=== PATIENT | female | born 1950 | race Caucasian/White ===

== ENCOUNTER → 2020-03-22 | Outpatient (CLI) | payer MEDICARE | LOC: ZCOL.LAB 19:07 | DX: S00.431A Contusion of right ear, initial encounter (principal) ==

== ENCOUNTER → 2020-03-22 | Outpatient (CLI) | payer MEDICARE | LOC: ZCOL.LAB 14:00 | DX: S00.431A Contusion of right ear, initial encounter (principal) ==

== ENCOUNTER 2020-07-08 09:30 | Outpatient (CLI) | payer MEDICARE ==
[~2020-07-08] VITALS: Ht 154.9 cm; Wt 79.0 kg
[2020-07-08] VITALS (9 sets, daily range): BP systolic 102–173; BP diastolic 63–86; PULSE 90–110
[2020-07-08] MEDS ORDERED: HUMALOG100 U/ML SQ (09:53)
[2020-07-08] MEDS ORDERED: TOPAMAX50 MG PO (09:54)
[2020-07-08] MEDS ORDERED: MASON NATURAL2000 IU PO (09:55)
[2020-07-08] MEDS ORDERED: HUMULIN 70/3100 U/M1 SQ (09:55)
[2020-07-08] MEDS ORDERED: MIRAPEX0.25 MG PO (09:56)
[2020-07-08] MEDS ORDERED: KEPPRA750 MG PO (09:57)
[2020-07-08] MEDS ORDERED: CRESTOR 10MG10 MG PO (09:57)
[2020-07-08] MEDS ORDERED: PERCOCET 325 MG1 TAB PO (09:58)
[2020-07-08] MEDS ORDERED: MOBIC15 MG PO (09:59)
[2020-07-08] MEDS ORDERED: FARXIGA5 PO (09:59)
[2020-07-08] MEDS ORDERED: CYMBALTA 60MG60 MG PO (09:59)
[2020-07-08 11:17] LABS: GLUCOSE,CSF 107 mg/dL (40-70); TOTAL PROTEIN,CSF 73 mg/dL (15-45)
--- NOTE | 2020-07-08 11:52 | NUR ---
Pt's Alex contacted, he states he is 45 mins out, and will come to the hospital to picked edge sewing machine operator . Pt continues to rest comfortably, denies needs. Call light in reach.
--- NOTE | 2020-07-08 12:45 | NUR ---
Pt assisted out by wheelchair to 's car. Nausea has resolved. Pt expresses understanding of DC instructions. Bandaid over LP site remains clean, dry and intact.
[2020-07-08 13:21] LABS: CSF APPEARANCE CLEAR; CSF COLOR COLORLESS; CSF RBC 69 /mm3 (0-0)
[2020-07-08 13:22] LABS: CSF MONONUCLEAR 98 % (70-100); CSF POLYMORPHONUCLEAR 2 % (0-6)
== END 2020-07-08 12:47 | disposition home or self-care (01) ==
LOC: COL.RAD 09:30
PROVIDERS: Psychiatry & Neurology Neurology
DX: G37.9 Demyelinating disease of central nervous system, unspecified (principal)

== ENCOUNTER 2020-08-12 10:08 | Outpatient (RCR) | payer MEDICARE ==
[~2020-08-12 10:08] MED LIST: CRESTOR 10MG10 MG PO; CYMBALTA 60MG60 MG PO; FARXIGA5 PO; HUMALOG100 U/ML SQ; HUMULIN 70/3100 U/M1 SQ; KEPPRA1000 MG PO; MASON NATURAL2000 IU PO; MIRAPEX 1MG PO; MOBIC15 MG PO; PERCOCET 325 MG1 TAB PO; TOPAMAX50 MG PO
[2020-10-30] MEDS ORDERED: PRISTIQ25 MG PO (09:00)
[2020-10-30] MEDS ORDERED: AMITRIPTYLINE H25 M1 PO (09:00)
[2020-10-30] MEDS ORDERED: ZYRTEC 10MG10 MG PO (09:01)
[2020-10-30] MEDS ORDERED: SINGULAIR 110 MG/TAB PO (09:01)
[2021-03-04] MEDS ORDERED: PRIL40 PO (10:50)
[2021-03-04] MEDS ORDERED: FIORICET 325 MG1 TA1 PO (10:53)
== END 2020-11-10 | disposition still patient (30) ==
LOC: WSST
DX: I69.391 Dysphagia following cerebral infarction (principal); R13.12 Dysphagia, oropharyngeal phase; R05 Cough; G35 Multiple sclerosis; M79.7 Fibromyalgia; E11.9 Type 2 diabetes mellitus without complications

== ENCOUNTER → 2020-08-28 | Outpatient (CLI) | payer MEDICARE ==
[~2020-08-28] MED LIST changes: +AMITRIPTYLINE H25 M1 PO; +FIORICET 325 MG1 TA1 PO; +PRIL40 PO; +PRISTIQ25 MG PO; +SINGULAIR 110 MG/TAB PO; +ZYRTEC 10MG10 MG PO
== END ==
LOC: COL.RAD
DX: R05 Cough (principal)

== ENCOUNTER 2020-11-04 09:18 | Outpatient (CLI) | payer MEDICARE ==
[2020-11-04] VITALS (9 sets, daily range): BP systolic 131–148; BP diastolic 73–94; PULSE 78–98
[~2020-11-04] VITALS: Ht 154.9 cm; Wt 84.0 kg
[~2020-11-04 09:18] MED LIST changes: -FIORICET 325 MG1 TA1 PO; -PRIL40 PO
[2021-03-04] MEDS ORDERED: PRIL40 PO (10:50)
[2021-03-04] MEDS ORDERED: FIORICET 325 MG1 TA1 PO (10:53)
== END 2020-11-04 21:47 | disposition home or self-care (01) ==
LOC: COL.RAD 09:18
DX: M48.02 Spinal stenosis, cervical region (principal)
CPT/HCPCS: Q9967

== ENCOUNTER → 2021-01-01 | Outpatient (CLI) | payer MEDICARE ==
[~2021-01-01] MED LIST changes: +FIORICET 325 MG1 TA1 PO; +PRIL40 PO
== END ==
LOC: COL.RAD 10:08
DX: M51.26 Other intervertebral disc displacement, lumbar region (principal); M47.817 Spondylosis without myelopathy or radiculopathy, lumbosacral region; M47.816 Spondylosis without myelopathy or radiculopathy, lumbar region
CPT/HCPCS: A9585

== ENCOUNTER → 2021-02-26 | Outpatient (CLI) | payer MEDICARE | LOC: COL.RAD 02-25 13:00 | DX: I65.23 Occlusion and stenosis of bilateral carotid arteries (principal) | CPT/HCPCS: Q9967 ==

== ENCOUNTER → 2021-03-04 | Day surgery (SDC) | payer MEDICARE ==
[~2021-03-04] VITALS: Ht 154.9 cm; Wt 86.0 kg
[2021-03-04 10:38] VITALS: BP 134/70; PULSE 91; TEMP 97.4
[2021-03-04 13:55] VITALS: BP 94/51; PULSE 80; TEMP 97.9
[2021-03-04 14:10] VITALS: BP 93/53; PULSE 76
[2021-03-04 14:25] VITALS: BP 116/54; PULSE 77
--- NOTE | 2021-03-04 15:35 | NUR ---
1355: Patient arrived back into [facility]. Soft blood pressure noted, patient drowsy and awakens to voice. at bedside. Hand off from ORACLE BRM DEVELOPER and MAT CLEANING MACHINE OPERATOR. 1410: Patient awake and alert. Soft bps noted. Patient requesting orange jello and water. Tolerated well. 1425: Patient vitally stable. Tolerated second jello well. No nausea/vomiting. Denies pain at this time. 1440: Patient vitally stable. Patient to restroom. 1310: Patient able to void, got dressed. IV pulled. Discharge instructions recieved by patient and . Questions answered. Patient got dressed. 1320: Call light on. Patient states she is ready to go. Escorted patient and to patient entrances and assisted patient into their vehicle.
== END ==
LOC: SDCO 10:02
DX: G44.89 Other headache syndrome (principal); E11.65 Type 2 diabetes mellitus with hyperglycemia; E78.5 Hyperlipidemia, unspecified; G35 Multiple sclerosis; F32.9 Major depressive disorder, single episode, unspecified; G25.81 Restless legs syndrome; I25.10 Atherosclerotic heart disease of native coronary artery without angina pectoris; M17.11 Unilateral primary osteoarthritis, right knee; R56.9 Unspecified convulsions; Z79.1 Long term (current) use of non-steroidal anti-inflammatories (NSAID); Z79.4 Long term (current) use of insulin; Z95.0 Presence of cardiac pacemaker; Z79.899 Other long term (current) drug therapy
CPT/HCPCS: A4648; J7120

== ENCOUNTER → 2021-04-02 | Outpatient (CLI) | payer MEDICARE | LOC: MHCPAIN 09:16 | DX: M47.817 Spondylosis without myelopathy or radiculopathy, lumbosacral region (principal); M53.3 Sacrococcygeal disorders, not elsewhere classified; M54.16 Radiculopathy, lumbar region | CPT/HCPCS: G0463 ==

== ENCOUNTER → 2021-04-07 | Outpatient (CLI) | payer MEDICARE | LOC: MHCPAIN 12:16 | DX: M47.817 Spondylosis without myelopathy or radiculopathy, lumbosacral region (principal); M54.50 Low back pain, unspecified; M53.3 Sacrococcygeal disorders, not elsewhere classified ==

== ENCOUNTER → 2021-04-14 | Outpatient (CLI) | payer MEDICARE | LOC: MHCPAIN 10:48 | DX: M47.817 Spondylosis without myelopathy or radiculopathy, lumbosacral region (principal); M54.50 Low back pain, unspecified; M53.3 Sacrococcygeal disorders, not elsewhere classified; M96.1 Postlaminectomy syndrome, not elsewhere classified | CPT/HCPCS: G0463 ==

== ENCOUNTER → 2021-04-21 | Outpatient (CLI) | payer MEDICARE | LOC: MHCPAIN 10:07 | DX: M47.817 Spondylosis without myelopathy or radiculopathy, lumbosacral region (principal); M53.3 Sacrococcygeal disorders, not elsewhere classified; M54.50 Low back pain, unspecified ==

== ENCOUNTER → 2021-05-05 | Outpatient (CLI) | payer MEDICARE | LOC: MHCPAIN 15:28 | DX: M47.817 Spondylosis without myelopathy or radiculopathy, lumbosacral region (principal); M53.3 Sacrococcygeal disorders, not elsewhere classified; M54.50 Low back pain, unspecified | CPT/HCPCS: G0463 ==

== ENCOUNTER → 2021-05-27 | Outpatient (CLI) | payer MEDICARE | LOC: MHCPAIN 13:52 | CPT/HCPCS: J2250; J3010 ==

== ENCOUNTER → 2021-06-03 | Outpatient (CLI) | payer MEDICARE | LOC: MHCPAIN 13:32 | DX: M47.817 Spondylosis without myelopathy or radiculopathy, lumbosacral region (principal); M54.50 Low back pain, unspecified; M53.3 Sacrococcygeal disorders, not elsewhere classified | CPT/HCPCS: J2250; J3010 ==

== ENCOUNTER 2021-09-09 11:20 | Emergency (ER) | payer MEDICARE ==
[~2021-09-09] VITALS: Ht 152.4 cm; Wt 86.8 kg
[2021-09-09 11:38] VITALS: TEMP 97.3
[2021-09-09 12:18] LABS: BASO # 0.1 K/mm3 (0.0-0.2); BASO % 0.7 % (0.0-2.0); EOS # 0.3 K/mm3 (0.0-0.7); EOS % 3.1 % (0.0-4.0); GRAN # 5.8 K/mm3 (1.4-6.5); GRAN % 68.9 % (42.2-75.2); HEMATOCRIT 37.3 % (37.0-47.0); HEMOGLOBIN 11.7 g/dl (12.5-16.0); LYMPH # 1.6 K/mm3 (1.2-3.4); LYMPH % 18.4 % (20.0-51.0); MEAN CELL VOLUME 89 fl (80.0-100.0); MEAN CORPUSCULAR HEMOGLOBIN 28 pg (27-31); MEAN CORPUSCULAR HGB CONC 31 g/dl (33.0-37.0); MEAN PLATELET VOLUME 10.1 fl (7.4-10.4); MONO # 0.7 K/mm3 (0.1-0.6); MONO % 8.5 % (1.7-9.3); PLATELET COUNT 156 K/mm3 (130-400); RED BLOOD COUNT 4.17 M/mm3 (4.10-5.30); REDCELL DISTRIBUTION WIDTH-CV 12.9 % (11.5-14.5)
[2021-09-09 12:28] LABS: ALANINE AMINOTRANSFERASE 28 U/L (0-55); ALBUMIN 3.6 gm/dL (3.4-4.8); ALKALINE PHOSPHATASE 136 U/L (40-150); ANION GAP 10 mmol/L (7-16); AST,SGOT 27 U/L (5-34); BILIRUBIN,TOTAL 0.3 mg/dL (0.2-1.2); BLOOD UREA NITROGEN 21 mg/dL (10-20); CARBON DIOXIDE 28 mmol/L (23-31); CHLORIDE 104 mmol/L (98-107); CREATININE, serum 1.16 mg/dL (0.57-1.11); GLUCOSE 129 mg/dL (70-99); POTASSIUM 4.7 mmol/L (3.5-4.5); SODIUM 142 mmol/L (136-145); TOTAL PROTEIN 7.2 gm/dL (6.2-8.1)
[2021-09-09 12:48] LABS: TROPONIN-I < 0.010 ng/mL (0.00-0.033)
[2021-09-09 13:30] LABS: COLLECTION METHOD CLEAN CATCH
[2021-09-09 13:44] LABS: MUCOUS Present (NOT PRESENT); PH 5 (5-8); URINE APPEARANCE Hazy (CLEAR/HAZY); URINE BACTERIA Rare /hpf (NONE SEEN); URINE BILIRUBIN Negative (NEGATIVE); URINE BLOOD Negative (NEGATIVE); URINE COLOR Yellow (YELLOW); URINE GLUCOSE 3+ (NEGATIVE); URINE KETONE Negative (NEGATIVE); URINE LEUKOCYTE ESTERASE 1+ (NEGATIVE); URINE NITRATE Negative (NEGATIVE); URINE PROTEIN(semi-quant) 2+ (NEGATIVE); URINE RBC 0-2 /hpf (0-2); URINE UROBILINOGEN Negative (NEGATIVE)
[2021-09-09] MEDS ORDERED: BACTRIM DS 8001 TAB PO (14:01)
[2021-09-09 14:07] VITALS: BP 139/86; PULSE 84
== END 2021-09-09 14:29 | disposition home or self-care (01) ==
LOC: COL.ER 11:20
PROVIDERS: Emergency Medicine
DX: N39.0 Urinary tract infection, site not specified (principal); M79.89 Other specified soft tissue disorders; Z87.891 Personal history of nicotine dependence; Z88.0 Allergy status to penicillin; Z88.1 Allergy status to other antibiotic agents

== ENCOUNTER → 2021-09-22 | Outpatient (CLI) | payer MEDICARE ==
[~2021-09-22] MED LIST changes: +BACTRIM DS 8001 TAB PO
== END ==
LOC: MHCPAIN 10:40
DX: M47.896 Other spondylosis, lumbar region (principal); M53.3 Sacrococcygeal disorders, not elsewhere classified; M96.1 Postlaminectomy syndrome, not elsewhere classified
CPT/HCPCS: G0463

== ENCOUNTER → 2021-10-13 | Outpatient (CLI) | payer MEDICARE | LOC: ZCOL.LAB 11:42 | DX: R60.0 Localized edema (principal); R06.02 Shortness of breath ==

== ENCOUNTER → 2021-10-14 | Outpatient (CLI) | payer MEDICARE | LOC: COL.RAD 13:06 | DX: R06.02 Shortness of breath (principal); R79.1 Abnormal coagulation profile; R06.00 Dyspnea, unspecified | CPT/HCPCS: Q9967 ==

== ENCOUNTER → 2021-12-01 | Outpatient (CLI) | payer MEDICARE | LOC: MHCPAIN 10:31 | DX: M47.817 Spondylosis without myelopathy or radiculopathy, lumbosacral region (principal); M53.3 Sacrococcygeal disorders, not elsewhere classified; M54.50 Low back pain, unspecified; M96.1 Postlaminectomy syndrome, not elsewhere classified; E11.9 Type 2 diabetes mellitus without complications; Z79.4 Long term (current) use of insulin | CPT/HCPCS: G0463 ==

== ENCOUNTER → 2022-04-14 | Outpatient (CLI) | payer MEDICARE | LOC: MHCPAIN 09:51 | DX: M47.817 Spondylosis without myelopathy or radiculopathy, lumbosacral region (principal); M96.1 Postlaminectomy syndrome, not elsewhere classified; M54.50 Low back pain, unspecified; M53.3 Sacrococcygeal disorders, not elsewhere classified | CPT/HCPCS: G0463 ==

== ENCOUNTER 2023-04-05 14:48 | Emergency (ER) | payer MEDICARE ==
[~2023-04-05] VITALS: Ht 154.9 cm; Wt 88.2 kg
[~2023-04-05 14:48] MED LIST changes: +AMITRIPTYLINE H50 M1 PO; +ASPIRIN 81M81 MG/TA2 PO; +ASPIRIN E.C. 8181 MG PO; +ASTEPRO205.5 MCG/ NS; +COREG 3.123.125 MG/T PO; +CRESTOR20 MG PO; +CYMBALTA 30MG30 MG PO; +DEMADEX 20MG20 M1 PO; +DEMADEX10 MG PO; +DESYREL 50MG50 MG PO; +DITROPAN 5MG TAB5 MG PO; +FOLIC ACID 40400 MCG PO; +GRALISE300 MG PO; +HUMALOG PEN100 U/ML SQ; +INSHUMULIN7030KWIK SQ; +IRON TABLETS325 MG PO; +JARDIANCE10; +JARDIANCE10 PO; +K-DUR 10 MEQ T10 MEQ PO; +K-TAB10 PO; +KEPPRA 500MG500 MG PO; +KEPPRA250 MG PO; +LANTUS SOLOS100 U/ML SQ; +LIDODERM 5% PATC1 EA TP; +MELATONIN5 M1 SL; +MIRAPEX1.5 MG PO; +MYRBETR25MG PO; +NEURONTIN300 MG/CAP PO; +NOVOLOG 100U100 U/M1 SQ; +NUCYNTA50 MG PO; +PLAVIX 75MG TAB75 MG PO; +RYBELSUS14 MG PO; +SOAANZ20 MG PO; +TOPROL XL 25MG25 MG PO; +TRULICITY0.75 MG/0. SQ; +ULTRAM 50MG TAB50 MG PO; +VITAMIN C500 MG PO; +VITAMIN D362.5 MC1 PO
[2023-04-05 15:41] LABS: ALBUMIN 3.5 gm/dL (3.4-4.8); BILIRUBIN,TOTAL 0.4 mg/dL (0.2-1.2); CALCIUM 9.4 mg/dL (8.4-10.2); CREATININE, serum 1.28 mg/dL (0.57-1.11); POTASSIUM 4.1 mmol/L (3.5-4.5); TOTAL PROTEIN 6.8 gm/dL (6.2-8.1)
[2023-04-05 16:03] LABS: PROLACTIN 3.9 ng/mL (5.18-26.53)
[2023-04-05 16:47] LABS: BASO # 0.1 K/mm3 (0.0-0.2); BASO % 0.8 % (0.0-2.0); EOS # 0.2 K/mm3 (0.0-0.7); EOS % 2.2 % (0.0-4.0); GRAN # 6.2 K/mm3 (1.4-6.5); GRAN % 67.9 % (42.2-75.2); HEMATOCRIT 44.6 % (37.0-47.0); HEMOGLOBIN 14.8 g/dl (12.5-16.0); LYMPH % 22.3 % (20.0-51.0); MEAN CELL VOLUME 101 fl (80.0-100.0); MEAN CORPUSCULAR HEMOGLOBIN 33 pg (27-31); MEAN CORPUSCULAR HGB CONC 33 g/dl (33.0-37.0); MEAN PLATELET VOLUME 10.4 fl (7.4-10.4); MONO # 0.6 K/mm3 (0.1-0.6); MONO % 6.5 % (1.7-9.3); PLATELET COUNT 167 K/mm3 (130-400); RED BLOOD COUNT 4.44 M/mm3 (4.10-5.30); REDCELL DISTRIBUTION WIDTH-CV 12.1 % (11.5-14.5)
[2023-04-05 16:51] LABS: COLLECTION METHOD CLEAN CATCH
[2023-04-05 16:59] LABS: URINE APPEARANCE Clear (CLEAR/HAZY); URINE COLOR Yellow (YELLOW)
[2023-04-05 17:00] LABS: URINE BLOOD Negative (NEGATIVE); URINE GLUCOSE 2+ (NEGATIVE); URINE KETONE Negative (NEGATIVE); URINE NITRATE Negative (NEGATIVE); URINE PROTEIN(semi-quant) Negative (NEGATIVE); URINE UROBILINOGEN 0.2 E.U/dL (0.2-1.0)
[2023-04-05 17:30] VITALS: BP 147/73; PULSE 71; TEMP 98.1
[2023-04-05 17:33] LABS: URINE RBC 0-2 /hpf (0-2)
== END 2023-04-05 17:30 | disposition home or self-care (01) ==
LOC: COL.ER 14:48
PROVIDERS: Nurse Practitioner
DX: R25.8 Other abnormal involuntary movements (principal); R51.9 Headache, unspecified

== ENCOUNTER 2023-06-28 08:51 | Inpatient (IN) | payer MEDICARE ==
[~2023-06-28] VITALS: Ht 154.9 cm; Wt 89.5 kg
[~2023-06-28 08:51] MED LIST changes: +RESTORIL 1515 MG/CAP PO
--- NOTE | 2023-06-28 10:15 | NUR ---
PT ADMITTED TO 334 FROM HOME FOR WEAKNESS AND FALLS. PT AMBULATES WITH A WHEELED WALKER. PT IS ON RA AND WEARS A CPAP AT NIGHT. PT BROUGHT WITH HER. PT IS AXOX4 BUT STATES SHE HAS MEMORY ISSUES. BEDSIDE. MEDICATIONS REVIEWED WITH AND STATES HE WILL TAKE THEM HOME WITH HIM. PT AND ORIENTED TO ROOM AND UNIT. PT HAS AN INDWELLING CATHETER THAT WAS PLACED ON 06/11/23 AT [facility]. STATLOCK PLACED ON CATHETER. ST,PT,OT NOTIFIED OF PATIENTS ARRIVAL. PT INSTRUCTED PIE BOTTOMER LIGHT AND TO CALL FOR ALL NEEDS AND NOT TO GET UP ALONE. DARIN MORA BEDSIDE TO ARYA HANDY.
[2023-06-28] MEDS ORDERED: BUMEX 1MG TA1 MG/TA1 PO (10:27)
[2023-06-28] MEDS ORDERED: CENTRUM SILVER1 TAB PO (10:31)
[2023-06-28] MEDS ORDERED: MORPHINE 1515 MG/TAB PO (10:33)
[2023-06-28 10:43] VITALS: BP 132/48; PULSE 99; TEMP 98.1
[2023-06-28] MEDS ORDERED: Naloxone 0.4 MG/ML VIAL IV PRN (10:45)
[2023-06-28] MEDS ORDERED: Sennosides/Docusate 8.6-50 MG TAB PO PRN (10:45)
[2023-06-28] MEDS ORDERED: Polyethylene Glycol 3350 17 GM PDS PO PRN (10:45)
[2023-06-28] MEDS ORDERED: Docusate Sodium 100 MG CAP PO PRN (10:45)
[2023-06-28] MEDS ORDERED: Acetamin/Butalbital/Caffeine 325-50-40 MG TAB PO PRN ×2 (11:00→12:45)
[2023-06-28] MEDS ORDERED: Insulin Aspart (NovoLOG) SQ SCH (12:00)
--- NOTE | 2023-06-28 12:34 | NUR ---
1215-THIS RN WAS CALLED BY RHEA HANDY THAT PT WAS HAVING SEIZURE LIKE ACTIVITY. RN WENT BEDSIDE. PT HELPED TO LAY DOWN IN BED. PT MAINTAINED AIRWAY. PT EYES OPEN AND PARTIALLY TRACKING. PT HAVING TREMORS IN BILATERAL ARMS AND MOANING. PT NOT RESPONDING TO QUESTIONS. ON UNIT AND CAME BESIDE. VS CHECKED. ASSESSED PT AND PROVIDED NOXIOUS OLFACOTORY STIMULI. PT AWAKE AND ANSWERING QUESTIONS. VSS. PT REMAINS ON RA. CONTINUING ASSESSMENT. LUNCH ORDERED.
--- NOTE | 2023-06-28 13:02 | NUR ---
Has lack of transportation kept you from medical appts, meetings, work, or from getting things needed for daily living? no How often do you feel lonely or isolated from those around you? often Over the past 5 days, how much of the time has pain made it hard for you to sleep? frequently Over the past 5 days, how often have you limited your participation in therapy due to pain? n/a-no therapy Over the past 5 days, how often have you limited your day-to-day activities because of pain? rarely/not at all Have you had 2 or more falls in the past year or any fall with an injury? yes Did you have major surgery during the 100 days prior to admission? no
[2023-06-28] MEDS ORDERED: Acetaminophen 325 MG TAB PO PRN (16:30)
--- NOTE | 2023-06-28 17:08 | NUR ---
PTS DINNER BG WAS 69. PT WAS ASYMPTAMATIC. PT STATES SHE WOULD NOT TAKE ANY INSULIN AT HOME. PT GIVEN SNACK AND DINNER ORDERED. NOTIFIED AND ORDER RECEIVED TO HOLD INSULIN.
[2023-06-28 17:13] LABS: COLLECTION METHOD IN
[2023-06-28 17:27] LABS: PH 6.5 (5.0-8.5); URINE APPEARANCE Cloudy (CLEAR/HAZY); URINE BLOOD 1+ (NEGATIVE); URINE COLOR Yellow (YELLOW); URINE GLUCOSE 2+ (NEGATIVE); URINE KETONE TRACE (NEGATIVE); URINE NITRATE Positive (NEGATIVE); URINE PROTEIN(semi-quant) 2+ (NEGATIVE); URINE UROBILINOGEN 0.2 E.U/dL (0.2-1.0)
[2023-06-28 17:33] LABS: BUDDING YEAST Present (NOT PRESENT); SQUAMOUS EPITHELIAL 0-2 /hpf (0-10); URINE BACTERIA Many /hpf (NONE SEEN)
[2023-06-28 18:11] VITALS: BP 114/74; PULSE 70; TEMP 97.7
[2023-06-28 19:00] VITALS: BP_SYST 114
--- NOTE | 2023-06-28 19:00 | NUR ---
Received change of shift report from day shift nurse. Patient resting in bed, eating supper. Call light in reach, exit alarm on.
[2023-06-28] MEDS ORDERED: Temazepam 15 MG CAP PO SCH (21:00)
[2023-06-28] MEDS ORDERED: Gabapentin 300 MG CAP PO SCH (21:00)
[2023-06-28] MEDS ORDERED: Rosuvastatin 10 MG **** subs to Atorvastatin 20 MG PO SCH (21:00)
[2023-06-28] MEDS ORDERED: Atorvastatin 20 MG TAB PO SCH (21:00)
[2023-06-28] MEDS ORDERED: Bumetanide 1 MG TAB PO SCH (21:00)
[2023-06-28] MEDS ORDERED: DULoxetine 30 MG CAP PO SCH (21:00)
[2023-06-28] MEDS ORDERED: Topiramate 25 MG TAB PO SCH (21:00)
[2023-06-28] MEDS ORDERED: Empagliflozin 10 MG TAB PO SCH (21:00)
[2023-06-28] MEDS ORDERED: Montelukast 10 MG TAB PO SCH (21:00)
--- NOTE | 2023-06-28 23:01 | NUR ---
Patient resting in bed with no needs or concerns reported. Exit alarm on, call light in reach.
--- NOTE | 2023-06-29 01:34 | NUR ---
Patient requested to have own CPAP set up. With patient instructing nursing, CPAP from home set up and patient placed mask to face per self. RT informed of CPAP on patient.
[2023-06-29 04:32] VITALS: BP 107/64; PULSE 70; TEMP 98
[2023-06-29 07:00] VITALS: BP_SYST 107
[2023-06-29] MEDS ORDERED: Omeprazole 40 MG **** subs to Pantoprazole 40 MG PO SCH (07:00)
--- NOTE | 2023-06-29 07:58 | NUR ---
Change of shift report given to day shift nurseChristiana.
[2023-06-29 08:37] LABS: ALBUMIN 3.2 gm/dL (3.4-4.8); BILIRUBIN,TOTAL 0.4 mg/dL (0.2-1.2); CALCIUM 8.4 mg/dL (8.4-10.2); CREATININE, serum 1.06 mg/dL (0.57-1.11); TOTAL PROTEIN 6.5 gm/dL (6.2-8.1)
[2023-06-29] MEDS ORDERED: Polyethylene Glycol 3350 17 GM PDS PO SCH (09:00)
[2023-06-29 09:21] LABS: BASO # 0.1 K/mm3 (0.0-0.2); BASO % 1.6 % (0.0-2.0); EOS # 0.3 K/mm3 (0.0-0.7); EOS % 5.5 % (0.0-4.0); GRAN % 52.9 % (42.2-75.2); HEMOGLOBIN 14.4 g/dl (12.5-16.0); LYMPH # 1.8 K/mm3 (1.2-3.4); LYMPH % 32.3 % (20.0-51.0); MEAN CELL VOLUME 101 fl (80.0-100.0); MEAN CORPUSCULAR HEMOGLOBIN 34 pg (27-31); MEAN CORPUSCULAR HGB CONC 34 g/dl (33.0-37.0); MEAN PLATELET VOLUME 10.1 fl (7.4-10.4); MONO # 0.4 K/mm3 (0.1-0.6); MONO % 7.5 % (1.7-9.3); PLATELET COUNT 183 K/mm3 (130-400); RED BLOOD COUNT 4.25 M/mm3 (4.10-5.30)
[2023-06-29] MEDS ORDERED: Fosfomycin 3 G PACKET PO ONE (09:30)
--- NOTE | 2023-06-29 09:56 | NUR ---
PT ALERT AND ORIENTED. VSS, SHIFT ASSESSMENT COMPLETE. PAIN RATED 1/10. WILL WORK ON ENCOURAGING AHERANCE TO ADA DIET, STATES SHE DOES NOT FOLLOW ANY KIND OF DIET AT HOME. MEDICATED PER EMAR. CALL LIGHT WITHIN REACH, BED ALARM INTACT.
--- NOTE | 2023-06-29 16:44 | NUR ---
PT LET ME KNOW SHE WAS EXPERIANCING A HEADACHE, I CLOSED HER CURTIANS DOWN TO ALLOW THE ROOM TO BE DARKENED. I WENT TO PULL MEDS FOR HER WATSON, THE CALL LIGHT WENT OFF AND SHE CALLED FOR HER NURSE TO COME IN BECAUSE SHE WAS GOING TO HAVE A SEIZURE. I WALKED INTO THE PT ROOM AT 1621 THE SEIZURE STARTED PT EYES BEGAN TO CLOSE, AND UPPER BODY WAS SHAKING INVOLUNTARILY, O2 APPLIED ON 2 LITERS AND RADIAL PULSE REMAINED PALPABLE, SEIZURE ACTIVITY ENDED AT 1624. PT SLOWLY CAME TO AND WAS ABLE TO TELL ME HER NAME, , WHERE SHE WAS AND WHY SHE WAS HERE AND THANKED ME FOR STAYING WITH HER.SEIZURE PRECAUTIONS IN PLACE.
[2023-06-29] MEDS ORDERED: Insulin Aspart (NovoLOG) SQ SCH (17:00)
[2023-06-29] MEDS ORDERED: Dextrose 50% Water 25 GM/50 ML SYRINGE IV PRN (17:15)
[2023-06-29] MEDS ORDERED: Glucagon 1 MG VIAL IM PRN (17:15)
[2023-06-29] MEDS ORDERED: Dextrose (Glucose) 15 GM (4 x 3.75 GM) Chewable TABLET PACK PO PRN (17:15)
[2023-06-29 17:48] VITALS: BP 146/76; PULSE 81; TEMP 97.8
[2023-06-29 19:03] VITALS: BP_SYST 146
--- NOTE | 2023-06-29 19:03 | NUR ---
RECEIVED CHANGE OF SHIFT REPORT FROM DAY SHIFT NURSE. EXIT ALARMS ON WHEN IN BED OR UP IN CHAIR WITH CALL LIGHT IN REACH.
--- NOTE | 2023-06-30 00:40 | NUR ---
PCT REPORTED THAT PATIENT WAS COMPLAINING OF HER L HAND/WRIST WAS SWOLLEN, AND HAD STAFF REMOVED X2 RINGS AND WATCH AND PLACED THOSE 3 JEWELRY PIECES IN GODOY SQUARE BASIN WITH PATIENT'S OTHER BELONGINGS ON ROOM SINK COUNTER SPACE.
[2023-06-30 05:17] VITALS: BP 140/65; PULSE 73; TEMP 97.7
[2023-06-30 07:06] VITALS: BP_SYST 140
--- NOTE | 2023-06-30 07:17 | NUR ---
CHANGE OF SHIFT REPORT GIVEN TO DAY SHIFT NURSEESTEFANIA. PATIENT RESTING IN BED WITH EXIT ALARM ON, CALL LIGHT IN REACH. DENIES ANY NEEDS AT TIME OF REPORT.
--- NOTE | 2023-06-30 08:00 | NUR ---
PT ALERT AND ORIENTED, VSS. ASSESSED, MEDICATED PER EMAR. VERY PLEASANT WOMAN WHO IS TAKEN CARE OF BY HER AT HOME. SHE DENIES AND PAIN OR NEED FOR HEADACHE MEDICINE. CALLS HER MEALS IN IND. SHE DOES NOT EAT EGGS OR PORK.WOULD LIKE THE CALI TO BE REMOVED. DENIES NEED FOR ANYHTING FURTHER AT THIS TIME. CALL LIGHT WITHIN REACH, CHAIR ALARM SET.
--- NOTE | 2023-06-30 10:47 | NUR ---
PT HAD TWO PSEUDOSEIZURES BACK TO BACK. THE FIRST ONE STARTED AT 1039 AND LASTED UNTIL 1041. THE SECOND ONE STARTED AT 1049 AND LASTED UNTIL 1051 APPROXIMATELY. BOTH WERE TRIGGERED BY ENVIRONMENTAL STIMULI. PT WAS KEPT SAFE FOR BOTH AND SEIZURE PRECAUTIONS REMAIN IN PLACE. HOSPITALIST NOTIFIED WELL DR LOVE. PSYCHIATRY CONSULTED.
[2023-06-30 11:01] VITALS: BP 179/89; PULSE 96; TEMP 98.2
[2023-06-30] MEDS ORDERED: Insulin Aspart (NovoLOG) SQ SCH (12:00)
--- NOTE | 2023-06-30 13:38 | NUR ---
Initial visit; Patient's voice was flat when she answered Survey Crew Chief who said her lunch looked good so Survey Crew Chief wouldn't bother her. She said, "Well, here, you can have it." Survey Crew Chief of course declined. introduced herself and tried to initiate conversation commenting on how pretty her nails were. She said her likes them. She said flatly that she just doesn't care anymore. Survey Crew Chief asked if she would like prayer. She said if Survey Crew Chief wanted to pray that was ok. Survey Crew Chief offered prayer and later asked Maribell if she is depressed. She said, "I don't know, I just don't care." Survey Crew Chief asked if she thought of praying and she just shrugged and shook her head no. Survey Crew Chief offered God's blessings and left when a nurse came in. mentioned conversation to Nataly who is aware of Maribell's current behavior.
--- NOTE | 2023-06-30 15:18 | NUR ---
garbage worker attended team conference this morning regarding pt. She is expected to discharge 07/09 with HH services OT/PT/ST. She has no equipment needs from TAYLOR. TAYLOR met with pt and provided team notes and went over the reccomendations. She verbalized understanding and says she has used a HH agency in the past, but could not recall who. She called her and left a voicemail when SW was in the room. TAYLOR completed intake with patient. She reports to live in [place] with her . She did not recall her PCP, but sees someone at [facility] in [place]. She gets medications from [facility] with no difficulties. She reports her does this. She confirmed her Alex [phone] is also DPOA-HC. TAYLOR verified copy on file. She has no stairs at home and says her drives her around. She uses a CPAP, rolator, and a wheelchair when needed. She reports she needs some assistance with ADLS, but can go to the bathroom on her own. Discharge Plan: 07/09 home with HH
[2023-06-30 17:38] VITALS: BP 112/59; PULSE 77; TEMP 98.1
[2023-06-30 18:30] VITALS: BP_SYST 112
--- NOTE | 2023-06-30 20:00 | NUR ---
PT RESTING IN BED. ALERT AND ORIENTED. PT C/O RT ANTERIOR PANNUS HURTS. NO REDNESS OR SKIN ISSUES. AIR BOOTS ON AT THIS TIME. HERE TO GET UPDATE. PT'S REMOVES AIR BOOTS. PT C/O CONTIPATION. DULCOLAX SUIPPOSITORY GIVEN. SEE COMPLETED SHIFT ASSESSMENT. SEIZURE PRECATIONS IN PLACE. CALL LIGHT IN REACH BED ALARM SET.
--- NOTE | 2023-06-30 21:30 | NUR ---
CPAP IN PLACE.
[2023-07-01 05:55] VITALS: BP 138/78; PULSE 77; TEMP 97.8
[2023-07-01 07:00] VITALS: BP_SYST 138
--- NOTE | 2023-07-01 14:10 | NUR ---
Code of 6 chosen for eating was determined by team discussion to be the most usual performance before interventions for this patient during the assessment period. Code of 4 chosen for oral hygiene was determined by team discussion to be the most usual performance before interventions for this patient during the assessment period. Code of 4 chosen for toileting hygiene was determined by team discussion to be the most usual performance for this patient during the discharge assessment period. Code of 3 chosen for upper body dressing was determined by team discussion to be the most usual performance before interventions for this patient during the assessment period. Code of 2 chosen for lower body dressing was determined by team discussion to be the most usual performance before interventions for this patient during the assessment period. Code of 2 chosen for putting on/taking off footwear was determined by team discussion to be the most usual performance before interventions for this patient during the assessment period. Code of 3 chosen for sit to lying was determined by team discussion to be the most usual performance before interventions for this patient during the assessment period. Code of 4 chosen for lying to sitting side of bed was determined by team discussion to be the most usual performance before interventions for this patient during the assessment period. Code of 4 chosen for sit to stand was determined by team discussion to be the most usual performance for this patient during the discharge assessment period.--PD Tong
--- NOTE | 2023-07-01 15:55 | NUR ---
tray worker called pt's , Alex to see if he was able to find the HH agency previously used. Alex states that they used [facility] in the past and liked them. TAYLOR said she will send them another referral for pt. Alex was informed of a family meeting. He was agreeable to July 06 at 9:30am and will attend in person. TAYLOR faxed referral to [facility] who confirms via phone they have recently had patient and can find out her PCP. Discharge Plan: Home 07/09 with [facility]
[2023-07-01 17:42] VITALS: BP 123/71; PULSE 78; TEMP 98.2
[2023-07-01 19:13] VITALS: BP_SYST 123
[2023-07-01] MEDS ORDERED: DULoxetine 60 MG CAP PO SCH (21:00)
--- NOTE | 2023-07-01 21:00 | NUR ---
PT RESTING IN BED, LISTENING TO MUSIC. CHEERFUL AND TALKATIVE. ACCUCHECK 91. NO SSI REQUIRED. NO NEEDS AT THIS TIME. CALL LIGHT IN REACH. BED ALARM SET.
[2023-07-02 05:18] VITALS: BP 145/71; PULSE 82; TEMP 98.5
[2023-07-02 07:00] VITALS: BP_SYST 145
[2023-07-02] MEDS ORDERED: Fosfomycin 3 G PACKET PO SCH (09:00)
--- NOTE | 2023-07-02 09:03 | NUR ---
Supervision provided as pt stood from bed to rolling walker. Pt sitting at sink for a.m hygiene. She will shower this afternoon w/ OT. Toileting needs denied at this time. Pt denies pain & reports sleeping well overnight.
--- NOTE | 2023-07-02 09:33 | NUR ---
Pt off unit w/ PT.
[2023-07-02] MEDS ORDERED: Meclizine 12.5 MG TAB PO PRN (11:30)
--- NOTE | 2023-07-02 13:26 | NUR ---
civil service worker faxed [facility] updates. Discharge Plan: Home 07/09 with [facility]
--- NOTE | 2023-07-02 16:24 | NUR ---
CALI CATHETER EXCHANGED WITH FELICITY FRIED. DRESSING TO LEFT HEAL REPLACED AFTER SHOWER. PT TOLERATED ALL PROCEEDURES WELL.
[2023-07-02 17:13] VITALS: BP 146/85; PULSE 75; TEMP 97.9
[2023-07-02 19:00] VITALS: BP_SYST 146
--- NOTE | 2023-07-02 21:00 | NUR ---
Assissted patinet to bathroom and back to bed. Denies any pain or needs at this time. Assessment complete and meds given. Call light and personal items in reach. Bed in low position and bed alarm on.
[2023-07-03 05:43] VITALS: BP 148/68; PULSE 72; TEMP 98
--- NOTE | 2023-07-03 06:30 | NUR ---
Patient resting in bed. Denies any pain or needs at this time. No changes overnight. Call light and personal items in reach. Bed in low position and bed alarm on.
[2023-07-03 17:09] VITALS: BP 136/69; PULSE 75; TEMP 97.9
[2023-07-03 19:00] VITALS: BP_SYST 136
--- NOTE | 2023-07-03 21:37 | NUR ---
PT IN BED, IS ALERT AND ORIENTED X4. HS MEDS GIVEN. HAS FOAM DRSG TO LT HIP/THIGH AREA D/I. MEPILEX INTACT TO LT HEEL, OBSERVED WOUND, DRYING WITH APPROX SIZE OF A QUARTER. PT REPORTS FEELING LIKE SHE IS GETTING A BLISTER AT FOAM DRSG SITE, SKIN IS CLEAR WITHOUT REDNESS OR SWELLING. WILL MONITOR. ABD WITH SCATTERED BRUISING PRESENT. DENIES NEED FOR PAIN MEDS AT THIS TIME.
--- NOTE | 2023-07-04 02:23 | NUR ---
PT CALLED TO ALERT STAFF SHE IS HAVING A SEIZURE. ABLE TO TALK TO STAFF, ARMS TREMORING, MOANING BUT ABLE TO FOLLOW STAFF.
--- NOTE | 2023-07-04 02:25 | NUR ---
TREMORS AND MOANING SUBSIDES.
--- NOTE | 2023-07-04 02:31 | NUR ---
MEDICATED WITH FIORCET 2 TABS FOR HEADACHE.
[2023-07-04 06:21] VITALS: BP 110/62; PULSE 70; TEMP 98.1
[2023-07-04 07:00] VITALS: BP_SYST 110
--- NOTE | 2023-07-04 09:11 | NUR ---
PATIENT SITTING UP IN CHAIR EATING BREAKFAST. ALERT AND ORIENTED. SHIFT ASSESSMENT COMPLETE. MIPLEX BOARDER DRSG APPLIED TO LEFT HEEL BY THIS NURSE. PATIENT DENIES PAIN OR DISCOMFORT AT THIS TIME. WILL CONT TO MONITOR FOR CHANGES.
--- NOTE | 2023-07-04 12:57 | NUR ---
PCT INFORMED THIS NURSE OF PATIENT HAVING A HEACACHE. THIS NURSE WENT TO ADMINISTER TYLENOL. PATIENT STATED "OH GOOD, I DON'T WANT TO HAVE A SEIZURE." PATIENT'S UPPER EXTREMITIES BEGAN TO HAVE TREMORS. PATIENT DID NOT RESPOND TO NURSE AND WAS GROANING. AFTER EPISODE, THIS NURSE ASSESSED VS. VSS. BP 130/71. HR 84. SPO2 94%. RR 16. CHARGE NURSE NOTIFIED. WILL MONITOR.
--- NOTE | 2023-07-04 15:51 | NUR ---
THIS NURSE WAS INFORMED BY PCT OF PATIENT MISPLACING WEDDING RING. PCT SUGGESTED TO PUT IN LABELED CONTAINER, PATIENT REFUSED.
[2023-07-04 17:10] VITALS: BP 124/69; PULSE 89; TEMP 98.4
[2023-07-04 19:00] VITALS: BP_SYST 124
--- NOTE | 2023-07-04 21:00 | NUR ---
PT IN BED, ASKING FOR HER LT THIGH TO BE CHECKED FOR A BLISTER. REMOVED FOAM DRSG, NO OPEN WOUND OR REDDENED SKIN NOTED, PT ELECTED TO LEAVE DRSG OFF. REPLACED MEPILEX TO LT HEEL, D/T ROLLING UP. WOUND IS DRYING, APPROX SIZE OF QUARTER. HEEL BOOTS ON PER HER REQUEST. HS MEDS GIVEN.
--- NOTE | 2023-07-05 00:10 | NUR ---
PLACED ON CPAP BY CLARA FRIED.
[2023-07-05 05:40] VITALS: BP 128/68; PULSE 75; TEMP 98.4
[2023-07-05 07:01] VITALS: BP_SYST 128
--- NOTE | 2023-07-05 07:19 | NUR ---
Shift report received from night RN. No events reported overnight. Pt awake & resting supine in bed. Call light in reach. Denies pain/discomfort. Fall precautions in place.
--- NOTE | 2023-07-05 11:50 | NUR ---
Pt reporting pain to left ear tragus. Slight redness noted. Pt denies inner ear pain, WATSON. states this is a recurring issue w/ her left ear & will bring in a cream from home. /pt advised to notify nurse when cream is here in order to obtain an order to use while inpt.
--- NOTE | 2023-07-05 16:03 | NUR ---
Pt having an issue w/ her call light not working properly. Pt up in wheelchair attempting to toilet w/ BUILDING DRAFTING OFFICER assistance. Pt noted to have an approximate 90 sec seizure. Pt transferred to bed using 3 person assistance. Pt now lying awake & supine in bed w/ HOB elevated to 45 degrees. Pt reporting WATSON. Tylenol given per PRN order. Pt has her call light in reach - call light working now. Nurse Nut Grinder contacting maintenance to double check call light system.
--- NOTE | 2023-07-05 16:03 | NUR ---
Tank Shop Supervisor spoke with Noemy at [facility] who advised they will have speech therapy available for when patient discharges. SW met with patient at bedside and spoke with , Alex via phone to provide this update.
--- NOTE | 2023-07-05 16:58 | NUR ---
Pt lying supine in bed w/ HOB slightly elevated. has just arrived. Pt looking over menu for dinner. She reports that her WATSON is still present but is getting better. Other needs denied. Call light in her reach. Fall precautions in place. Seizure pads remain on bed.
[2023-07-05 18:00] VITALS: BP 107/61; PULSE 75; TEMP 98
[2023-07-05 19:03] VITALS: BP_SYST 107
--- NOTE | 2023-07-05 19:03 | NUR ---
RECEIVED CHANGE OF SHIFT REPORT FROM DAY SHIFT NURSE. PATIENT RESTING IN BED, EXIT ALARM ON, CALL LIGHT IN REACH. NO NEEDS REPORTED AT TIME OF REPORT.
--- NOTE | 2023-07-05 21:21 | NUR ---
PATIENT REPORTS HAVING R EAR PAIN "TO OUTER EDGES". PATIENT REPORTS HAS "BUBBLES... I CAN HEAR THE BUBBLES BURST..." REPORTS HAS REPEATED RETURN OF R EAR OUTER EAR INFECTION THAT HURTS AND ITCHES. PATIENT STATES SHE PLANS ON SEEING HER PCP REGARDING HER RECURRENT OUTER R EAR INFECTION.
--- NOTE | 2023-07-05 23:21 | NUR ---
DRESSING CHANGE OF L HEEL, APPLIED NEW HEEL DRESSING, PATIENT TOLERATED DRESSING CHANGE WELL.
--- NOTE | 2023-07-05 23:41 | NUR ---
REPORTS SHE FELT "A BLISTER STARTING" INDICATING LEFT UPPER LATERAL THIGH, THAT PATIENT STATES CAME FROM WEARING DISPOSABLE BRIEF. OBSERVED AND PALP NO RAISED AREAS, NO "BLISTER LIKE" AREAS OBSERVED BY THIS NURSE, NO REDNESS TO SKIN AREA OF CONCERNS. PATIENT REPORTS SOME TENDERNESS TO AREA WITH PALPATION OF AREA. WILL CONTINUE TO MONITOR AREA OF CONCERN. DRESSING CHANGED TO LEFT HEEL PER HOSP P/P, APPLIED NEW HEEL PRESSURE DRESSING, OBSERVED LEFT HEEL AREA SCAB IN PLACE BUT SPLIT WITH NO REDNESS TO SURROUNDING SKIN AND NO DRAINAGE OBSERVED. NEW DRESSING DATED/TIMED/INITIALED PER HOSP P/P. PATIENT DENIES ANY OTHER NEEDS AT THIS TIME.
[2023-07-06 05:16] VITALS: BP 112/66; PULSE 70; TEMP 98
[2023-07-06 07:00] VITALS: BP_SYST 112
--- NOTE | 2023-07-06 07:19 | NUR ---
CHANGE OF SHIFT REPORT GIVEN TO DAY SHIFT NURSEADAM.
--- NOTE | 2023-07-06 08:36 | NUR ---
PATIENT ALERT AND ORIENTED X4. VSS. PATIENT HERE FOR DEBILITY R/T UTI/SEIZURES. PATIENT DENIES ANY PAIN THIS MORNING. ASSESSMENT PERFORMED. AM MEDS ADMINISTERED. CALI TO DD WITH YELLOW OUTPUT. LEFT HEEL DRESSING APPLIED, NO OPEN AREA, BLANCHABLE. UNABLE TO VIEW SACRAL/COCCYX AREA, WILL VIEW DURING OT. PATIENT UP TO CHAIR, WORKING ON ORAL HYGIENE. NO FURTHER NEEDS. CALL LIGHT IN REACH.
--- NOTE | 2023-07-06 10:41 | NUR ---
Public Transportation Inspector attended family meeting which included patient's , Alex at bedside. IPR Director opened the meeting by explaining it's purpose, followed by report from IPR Physician. PT/OT/ST provided report on patient's progress and discharge date of 07/09/23 was reviewed. Patient may need a tub transfer bench and was also interested in looking into a wheelchair vs a transport chair. SW will follow up on this and report back.
--- NOTE | 2023-07-06 14:05 | NUR ---
PATIENT REPORTS LUNCH TRAY WAS WRONG WHEN DELIVERED. AIDE ORDERED NEW TRAY PER PATIENT'S REQUEST. PATIENT REFUSES TO EAT SECOND TRAY. PATIENT OFFERED A SNACK OR NEW TRAY. PATIENT REFUSED. PATIENT REPORTS WATSON, REQUESTS TYLENOL. 650MG TYLENOL ADMINISTERED.
[2023-07-06 17:17] VITALS: BP 134/76; PULSE 77; TEMP 97.9
[2023-07-06 19:08] VITALS: BP_SYST 134
--- NOTE | 2023-07-06 19:08 | NUR ---
RECEIVED CHANGE OF SHIFT REPORT FROM DAY SHIFT NURSE. PATIENT RESTING IN BED DURING REPORT, EXIT ALARM ON, CALL LIGHT IN REACH. NO NEEDS REPORTED AT THIS TIME.
--- NOTE | 2023-07-06 19:50 | NUR ---
PATIENT REPORTS HAD SMALL LOOSE STOOL AFTER HAVING SEVERAL STOOLS THAT SHE HAS PASSED TODAY. NO OTHER NEEDS REPORTED AT THIS TIME.
[2023-07-07 05:22] VITALS: BP 154/79; PULSE 80; TEMP 97.3
--- NOTE | 2023-07-07 07:32 | NUR ---
RECIEVED REPORT FROM SPINNER CAP FRAME JOSEPH FRIED
[2023-07-07 07:33] VITALS: BP_SYST 154
--- NOTE | 2023-07-07 07:36 | NUR ---
CHANGE OF SHIFT REPORT GIVEN TO DAY SHIFT NURSEESTEFANIA.
--- NOTE | 2023-07-07 09:38 | NUR ---
PT ALERT AND ORIENTED. AT THE BEDSIDE UPON ENTERING THE ROOM. VSS. PT C/O FEELING LIKE SHE NEEDS TO URINATE W/O PAIN ,MOSTLY SAYS SHE FEELS LIKE ITS "WET DOWN THERE". PROVIDER AWARE. SHIFT ASSESSENT COMPLETE, MEDICATED PER EMAR. DENIES PAIN AT THIS TIME. DENIES NEED FOR ANYTHING FURTHER. CALL LIGHT WITHIN REACH, CHAIR ALARM SET.
--- NOTE | 2023-07-07 16:15 | NUR ---
Inbound Customer Service Agent attempted to contact patient's spouse, Alex and left a message.
[2023-07-07 16:59] VITALS: BP 116/57; PULSE 80; TEMP 98.6
[2023-07-07 19:00] VITALS: BP_SYST 116
--- NOTE | 2023-07-07 19:20 | NUR ---
report received from leslie dukes. pt sitting in bed eating dinner. pt denies pain. bed alarm on. call light in reach. all needs met at this time.
--- NOTE | 2023-07-07 21:24 | NUR ---
shift assessment complete, see documentation. pt tolerated hs meds well. pt denies pain. pt educated on increasing fluid intake, pt acknowledged and provided understanding of education. pt excited to go home and feels prepared with home health. bed alarm on. call light in reach. all needs met at this time.
--- NOTE | 2023-07-08 05:31 | NUR ---
pt slept well. tolerated am protonix well. call light in reach. all needs met at this time.
[2023-07-08 05:32] VITALS: BP 126/68; PULSE 73; TEMP 97.5
[2023-07-08 06:49] VITALS: BP_SYST 126
--- NOTE | 2023-07-08 06:50 | NUR ---
Shift report received from night RN. No events reported overnight. Pt awake & lying supine in bed. Pain/discomfort denied. Pt reports sleeping well overnight. Call light in reach. Fall precautions in place.
--- NOTE | 2023-07-08 08:13 | NUR ---
Pt up in wheelchair at sink blowdrying her hair. Pain/discomfort denied. Pt looking forward to discharging home tomorrow. Hoyt cath patent to drainage bag w/ clear, yellow return. Pt denies other needs at this time. Call light in reach.
--- NOTE | 2023-07-08 11:10 | NUR ---
Pt sitting up in the recliner w/ BLE elevated on footrest. Pt reports that she is "having a really good day". Pain/discomfort denied. Call light in reach. Chair alarm on.
--- NOTE | 2023-07-08 14:04 | NUR ---
Will lack of transportation kept you from medical appts, meetings, work, or from getting things needed for daily living? no How often do you feel lonely or isolated from those around you? never Over the past 5 days, how much of the time has pain made it hard for you to sleep? occasionally Over the past 5 days, how often have you limited your participation in therapy due to pain? rarely/not at all Over the past 5 days, how often have you limited your day-to-day activities because of pain? rarely/not at all
--- NOTE | 2023-07-08 14:55 | NUR ---
Enterprise Manager met with patient's , Alex while patient was in therapy to discuss DME needs. SW provided prices for transport chairs locally and also discussed option for shopping online. Alex advised he will look into options and follow up with SW tomorrow. SW also left copy of team conference notes for patient. SW met with patient later on in the afternoon to present and review IM. Patient verbalized understanding and provided signature on form. SW placed form in chart and provided copy to patient.
[2023-07-08 16:19] VITALS: BP 103/65; PULSE 77; TEMP 98.1
--- NOTE | 2023-07-08 17:41 | NUR ---
Pt sitting up in the recliner eating a snack. Pt waiting for dinner tray to be delivered. Pt reporting campbell discomfort. Campbell readjusted & tape applied to secure campbell to upper thigh (pt refusing stat-lock). Pt reporting a WATSON but does not want to take any pain medication at this time. Will continue to monitor. Call light in her reach. Chair alarm on.
[2023-07-08 19:00] VITALS: BP_SYST 103
--- NOTE | 2023-07-08 21:07 | NUR ---
PT IN BED, IS ALERT AND ORIENTED X4. MEPILEX TO LT HEEL SATURATED FROM SHOWER, CHANGED DRSG AT THIS TIME, ULCER HEALING, APPROX SIZE OF QUARTER. HAS MEPILEX TO LT HIP FOR COMFORT FROM DEPENDS. HS MEDS GIVEN. PT LOOKING FORWARD TO DC TOMORROW.
--- NOTE | 2023-07-08 23:44 | NUR ---
PT REPORTS HEADACHE, TYLENOL GIVEN. PT STATED "I DON'T NEED A SEIZURE TONIGHT".
--- NOTE | 2023-07-09 03:55 | NUR ---
PT ASKS FOR CPAP TO BE OFF. REPORTS HEADACHE AND STATES "IT JUST WOKE ME UP, I SURE HOPE I DON'T HAVE A SEIZURE". FIORCET 2 TABS PO NOW.
[2023-07-09 05:59] VITALS: BP 148/77; PULSE 76; TEMP 97.6
[2023-07-09 07:07] VITALS: BP_SYST 148
--- NOTE | 2023-07-09 07:08 | NUR ---
Shift report received from night RN. Pt reported WATSON overnight & given Tylenol & Fiorect to treat. No other events reported overnight. Pt sleeping supine in bed w/ even & unlabored resps. Call light in reach. Fall precautions in place. Hoyt cath patent to drainage.
--- NOTE | 2023-07-09 07:53 | NUR ---
Pt assisted to sitting position in bed to eat breakfast. She reports her WATSON feels better. She reports feeling ready to DC home. Other needs denied. Call light in reach. Bed alarm on.
[2023-07-09] MEDS ORDERED: CYMBALTA 60MG60 MG PO (09:42)
[2023-07-09] MEDS ORDERED: AZO-STANDARD95 MG PO (09:43)
--- NOTE | 2023-07-09 11:01 | NUR ---
DC Summary reviewed w/ pt & her spouse. They had no further questions. Belongings were gathered by the pt & her . Valuable items denied. Pt escorted off unit via wheelchair to vehicle
--- NOTE | 2023-07-09 11:52 | NUR ---
SW Student faxed discharge orders to [facility] (fax#[phone]).
--- NOTE | 2023-07-09 14:30 | NUR ---
Discharge QIM scores were reviewed by the team. Code of 6 chosen for eating was determined by team discussion to be the most usual performance for this patient during the discharge assessment period. Code of 6 chosen for oral hygiene was determined by team discussion to be the most usual performance for this patient during the discharge assessment period. Code of 4 chosen for toileting hygiene was determined by team discussion to be the most usual performance for this patient during the discharge assessment period. Code of 6 chosen for toilet transfers was determined by team discussion to be the most usual performance for this patient during the discharge assessment period. Code of 6 chosen for sit to stand was determined by team discussion to be the most usual performance for this patient during the discharge assessment period. Code of 6 chosen for walking 10 feet was determined by team discussion to be the most usual performance for this patient during the discharge assessment period.--Nataly Sharma, PD
--- NOTE | 2023-07-09 14:50 | NUR ---
Client Delivery Manager checked in with patient's , Alex who advised they went ahead and ordered a transport chair online yesterday.
== END 2023-07-09 11:05 | disposition home health service (06) | DRG 948 ==
PROVIDERS: ADMIT Physical Medicine & Rehabilitation Sports Medicine
DX: R53.81 Other malaise (principal); N39.0 Urinary tract infection, site not specified; Z16.24 Resistance to multiple antibiotics; R26.89 Other abnormalities of gait and mobility; R29.6 Repeated falls; R33.9 Retention of urine, unspecified; G40.909 Epilepsy, unspecified, not intractable, without status epilepticus; R51.9 Headache, unspecified; E11.40 Type 2 diabetes mellitus with diabetic neuropathy, unspecified; I50.9 Heart failure, unspecified; M79.7 Fibromyalgia; G47.00 Insomnia, unspecified; G25.81 Restless legs syndrome; G47.33 Obstructive sleep apnea (adult) (pediatric); K21.9 Gastro-esophageal reflux disease without esophagitis; E66.9 Obesity, unspecified; Z86.73 Personal history of transient ischemic attack (TIA), and cerebral infarction without residual deficits; Z95.0 Presence of cardiac pacemaker; Z79.4 Long term (current) use of insulin; Z68.38 Body mass index [BMI] 38.0-38.9, adult; Z74.09 Other reduced mobility; F41.1 Generalized anxiety disorder; F32.9 Major depressive disorder, single episode, unspecified; Y84.6 Urinary catheterization as the cause of abnormal reaction of the patient, or of later complication, without mention of misadventure at the time of the procedure; T83.511D Infection and inflammatory reaction due to indwelling urethral catheter, subsequent encounter; K59.00 Constipation, unspecified
CPT/HCPCS: A9270; A9284; J1650; J1815; Q3014

== ENCOUNTER 2023-12-25 20:41 | Inpatient (IN) | payer MEDICARE ==
[~2023-12-25] VITALS: Ht 154.9 cm; Wt 95.2 kg
[~2023-12-25 20:41] MED LIST changes: +AZO-STANDARD95 MG PO; +BUMEX 1MG TA1 MG/TA1 PO; +CENTRUM SILVER1 TAB PO; +GLUCOTROL 5M5 MG/TAB PO; +MORPHINE 1515 MG/TAB PO; +ZANAFLEX2 MG PO
[2023-12-25] MEDS ORDERED: Morphine 4 MG/ML VIAL IV ONE (21:15)
[2023-12-25] MEDS ORDERED: NS 500 ML IV ONE (21:15)
[2023-12-25] MEDS ORDERED: Ondansetron 4 MG/2 ML VIAL IV ONE (21:15)
[2023-12-25 21:38] LABS: BASO # 0.1 K/mm3 (0.0-0.2); BASO % 0.5 % (0.0-2.0); EOS # 0.2 K/mm3 (0.0-0.7); EOS % 1.6 % (0.0-4.0); GRAN # 7.5 K/mm3 (1.4-6.5); GRAN % 75.7 % (42.2-75.2); HEMATOCRIT 41.7 % (37.0-47.0); HEMOGLOBIN 13.8 g/dl (12.5-16.0); LYMPH # 1.5 K/mm3 (1.2-3.4); LYMPH % 15.3 % (20.0-51.0); MEAN CELL VOLUME 98 fl (80.0-100.0); MEAN CORPUSCULAR HEMOGLOBIN 33 pg (27-31); MEAN CORPUSCULAR HGB CONC 33 g/dl (33.0-37.0); MEAN PLATELET VOLUME 9.6 fl (7.4-10.4); MONO # 0.7 K/mm3 (0.1-0.6); MONO % 6.6 % (1.7-9.3); PLATELET COUNT 159 K/mm3 (130-400); RED BLOOD COUNT 4.25 M/mm3 (4.10-5.30); REDCELL DISTRIBUTION WIDTH-CV 12.1 % (11.5-14.5)
[2023-12-25 21:56] LABS: ALBUMIN 3.8 g/dL (3.4-4.8); BILIRUBIN,TOTAL 0.9 mg/dL (0.2-1.2); C-REACTIVE PROTEIN 1.04 mg/dL (0.00-0.50); CALCIUM 9.3 mg/dL (8.4-10.2); CREATININE, serum 1.3 mg/dL (0.57-1.11); POTASSIUM 4.9 mEq/L (3.5-4.5); TOTAL PROTEIN 7.9 g/dl (6.2-8.1)
[2023-12-25 21:58] LABS: ERYTHROCYTE SEDIMENTATION RATE 66 mm/hr (0-30)
[2023-12-25] MEDS ORDERED: Iohexol 300 - 100 ML VIAL IV ONE (22:03)
[2023-12-25] MEDS ORDERED: NS 50 ML IV SCH (22:04)
[2023-12-25 22:36] LABS: COLLECTION METHOD CLEAN CATCH
[2023-12-25 22:45] LABS: PH 6.5 (5.0-8.5); URINE APPEARANCE CLEAR (CLEAR/HAZY); URINE BLOOD NEGATIVE (NEGATIVE); URINE COLOR YELLOW (YELLOW); URINE GLUCOSE 3+ (NEGATIVE); URINE KETONE NEGATIVE (NEGATIVE); URINE NITRATE NEGATIVE (NEGATIVE); URINE PROTEIN(semi-quant) NEGATIVE (NEGATIVE); URINE UROBILINOGEN 0.2 E.U/dL (0.2-1.0)
[2023-12-26] VITALS (12 sets, daily range): BP systolic 79–138; BP diastolic 34–84; PULSE 69–87; TEMP 97.5–98.9
[2023-12-26] MEDS ORDERED: CIPRO 500MG TA500 MG PO (00:12)
[2023-12-26] MEDS ORDERED: NS 250 ML IV ONE (00:30)
[2023-12-26] MEDS ORDERED: BELSOMRA10 MG PO (04:32)
[2023-12-26] MEDS ORDERED: ALDACTONE 25MG25 M1 PO (04:33)
[2023-12-26] MEDS ORDERED: MIRAPEX0.75 MG PO (04:35)
[2023-12-26] MEDS ORDERED: ZOLOFT 50MG50 MG PO (04:35)
[2023-12-26] MEDS ORDERED: Ondansetron 4 MG/2 ML VIAL IV PRN (05:00)
[2023-12-26] MEDS ORDERED: Acetaminophen 325 MG TAB PO PRN (05:00)
[2023-12-26] MEDS ORDERED: ENTRESTO 24 MG1 EACH PO (05:24)
[2023-12-26] MEDS ORDERED: AIMOVIG AU70 MG/1 ML SQ (05:24)
[2023-12-26] MEDS ORDERED: tiZANidine 4 MG TAB PO PRN (05:30)
[2023-12-26] MEDS ORDERED: Dextrose (Glucose) 15 GM (4 x 3.75 GM) Chewable TABLET PACK PO PRN (05:30)
[2023-12-26] MEDS ORDERED: Glucagon 1 MG VIAL IM PRN (05:30)
[2023-12-26] MEDS ORDERED: Dextrose 50% Water 25 GM/50 ML SYRINGE IV PRN (05:30)
[2023-12-26] MEDS ORDERED: Morphine 4 MG/ML VIAL IV PRN (05:45)
--- NOTE | 2023-12-26 06:10 | NUR ---
Vancomycin Initial Dosing Pharmacy Note Ordering provider: Jessie Farias MD Indication/duration: UTI X 7 days Relevant comorbidities: HTN, DM, Hx MDR enterobacter UTI's LABS: WBC = 10, SCr = 1.3 Recommendation: Will draw troughs and follow levels. Loading dose: 2 grams Maintenance dose: 750 mg every 24 hours Trough goal: 10-15 ug/mL
--- NOTE | 2023-12-26 06:15 | NUR ---
PT ARRIVED TO THE SURGICAL FLOOR AROUND 0530HRS TO ROOM 323. PT A&O X 4; VSS; O2 2L VIA NC. PT COMPLAINED OF HEAD, LEFT SIDE AND LLE PAIN. HOSPITALIST CALLED, MORPHINE ORDERED AND GIVEN. PT FELT THE MORPHINE WAS EFFECTIVE FOR HER PAIN. PT DENIED CHEST PAIN, PALPITATIONS, SOB, N,V,D OR DIZZINESS. ADMISSIONS ASSESSMENT COMPLETE. MED REC COMPLETED WITH , IN ED, WHO MANAGES HER MEDS AT HOME, BEFORE HE LEFT. PT ORIENTED TO ROOM AND HOSPITAL POLICY. ALL QUESTIONS AND CONCERNS ADDRESSED. FALL PRECAUTIONS IN PLACE. BED ALARM ON. CALL LIGHT WITHIN REACH.
[2023-12-26] MEDS ORDERED: Vancomycin 2 GM,Special Dose/Pharmacy Prepared 2 GM in NS 500 ML IV ONE (07:00)
[2023-12-26] MEDS ORDERED: Insulin Lispro (HumaLOG) SQ SCH (08:00)
[2023-12-26] MEDS ORDERED: Carvedilol 3.125 MG TAB PO SCH (08:00)
--- NOTE | 2023-12-26 08:00 | NUR ---
PATIENT BLOOD PRESSURE LOW, SPOKE WITH PHYSICIAN IN PASSSING. COREG HELD AT THIS TIME. OTHER MORNIGN MEDICATIONS GIVEN (SEE EMAR). PATIENT ASYMPTOMATIC. SHE IS AWAKE ALERT AND SITTING UP IN BED NOW EATING BREAKFAST. PATIENT DENIES ANY NEEDS OR COMPLAINTS AT THIS TIME. CALL LIGHT WITHIN REACH. BED ALARM ON.
[2023-12-26] MEDS ORDERED: Pantoprazole 40 MG in NS 10 ML IV SCH (09:00)
[2023-12-26] MEDS ORDERED: traMADol 50 MG TAB PO PRN (09:00)
[2023-12-26] MEDS ORDERED: Gabapentin 300 MG CAP PO SCH (09:00)
--- NOTE | 2023-12-26 10:59 | NUR ---
SW met with patient to complete intake. Patient states she resides in [facility] with /DPOA-HC Alex Carpenter [phone]. Patient states prior to hospitalization obtained PT/OT 2 times per week from [facility], utilizes a walker for mobility, and is independent with ADLs. Patient provides that PCP is Dr. Rider, and pharmacy is [facility] in [facility]. Patient states that she plans to return to her home in [facility] upon discharge. SW will continue to follow. Discharge plan: home with potential HH services resuming with [place]
--- NOTE | 2023-12-26 12:35 | NUR ---
THIS RN SAW ORDER PLACED AT 0510 FOR [facility]. CALLED AND SPOKE WITH KERI HARO AND APOLOGIZED FOR THE LATE NOTIFICATION. [facility] AWARE AND WILL LIKE BE IN TOMORROW, THEY ARE AWARE OF PATIENTS STABLE STATUS.
--- NOTE | 2023-12-26 17:22 | NUR ---
PATIENT AWAKE AND ALERT, SITTING U PIN BED. CALL LIGHT WITIN REACH, FALL PRECAUTIOSN IN PLACE. PATIENT DENIES ANY NEEDS OR COMPLAINTS AT THIS TIME.
[2023-12-26] MEDS ORDERED: Atorvastatin 40 MG TAB PO SCH (21:00)
[2023-12-26] MEDS ORDERED: SERTRALINE PO SCH (21:00)
[2023-12-26] MEDS ORDERED: Rosuvastatin 20 MG **** subs to Atorvastatin 40 MG PO SCH (21:00)
[2023-12-26] MEDS ORDERED: Insulin Glargine-ygfn (Lantus) SQ SCH (21:00)
[2023-12-27] VITALS (11 sets, daily range): BP systolic 102–138; BP diastolic 45–73; PULSE 69–82; TEMP 98–98.2
[2023-12-27 06:00] LABS: BASO # 0.1 K/mm3 (0.0-0.2); BASO % 0.8 % (0.0-2.0); EOS # 0.2 K/mm3 (0.0-0.7); EOS % 2.9 % (0.0-4.0); GRAN # 5.2 K/mm3 (1.4-6.5); HEMATOCRIT 43.5 % (37.0-47.0); HEMOGLOBIN 13.8 g/dl (12.5-16.0); LYMPH # 1.9 K/mm3 (1.2-3.4); LYMPH % 23.8 % (20.0-51.0); MEAN CORPUSCULAR HEMOGLOBIN 33 pg (27-31); MEAN CORPUSCULAR HGB CONC 32 g/dl (33.0-37.0); MEAN PLATELET VOLUME 9.7 fl (7.4-10.4); MONO # 0.6 K/mm3 (0.1-0.6); MONO % 7.4 % (1.7-9.3); PLATELET COUNT 143 K/mm3 (130-400); RED BLOOD COUNT 4.21 M/mm3 (4.10-5.30); REDCELL DISTRIBUTION WIDTH-CV 12.4 % (11.5-14.5)
[2023-12-27 06:05] LABS: MEAN CELL VOLUME 103 fl (80.0-100.0)
[2023-12-27 06:23] LABS: CALCIUM 8.9 mg/dL (8.4-10.2); CREATININE, serum 1.53 mg/dL (0.57-1.11)
--- NOTE | 2023-12-27 07:36 | NUR ---
PATIENT ASLEEP, RESTING IN BED. PATIETN DENIES ANY NEEDS OR COMPLAINTS AT THIS TIME. FALL PRECAUTIONS IN PLACE. CALL LIGHT WTIHIN REACH. LALITHA VOICES UNDERSTANDING OF NPO STATUS.
--- NOTE | 2023-12-27 11:45 | NUR ---
PER PCT REPORT TO THIS RN. PATIENT STATED SHE WAS FEELING DIZZY, IT WAS NOTED PATIENT DID NOT HAVE HER O2 ON WHILE SHOWERING WITH THERAPY . PATIENT NOW ON 3LNC, RT WAS AT BEDSIDE. PATIENT STATES IT IS GETTING BETTER.
--- NOTE | 2023-12-27 13:17 | NUR ---
SW attended clinical rounds. Patient recommended for SNF. SW printed [email or web address] SNF list and met with patient and . Both are agreeable to need for rehab. List left with them to review and SW will follow up for choice for referral.
--- NOTE | 2023-12-27 13:30 | NUR ---
SP02 ON 3 LPM NC 89% INCREASED TO 4 LPM NC 92% RN NOTIFIED
--- NOTE | 2023-12-27 13:35 | NUR ---
PA UPDATED ON PATIENT CURRENT STATUS. PATIENT NOW REQUIRING 4LNC. SOME COMPLIAINTS OF DIZZYNESS AND OVERALL NOT FEELING UNWELL. AT BEGINING OF SHIFT PATIENT WAS ON 2LNC, AND HER BASELINE FROM HOME IS ROOM AIR. PER PA ABG WILL BE ORDERED.
[2023-12-27 14:15] LABS: ARTERIAL BLD GAS O2 SATURATION 97.6 % (92-100); ARTERIAL BLOOD GAS BASE EXCESS -1.3 (-2-2); ARTERIAL BLOOD GAS PCO2 62.9 mmHg (35-45); ARTERIAL BLOOD GAS PO2 105.2 mmHg (80-100); ARTERIAL BLOOD GAS pH 7.25 (7.35-7.45)
--- NOTE | 2023-12-27 16:03 | NUR ---
SW received call from patient's stating their preference for SNF is [facility]. Referral sent via secure email. Discharge plan: SNF
--- NOTE | 2023-12-27 18:00 | NUR ---
PATIETN AWAKE AND ALERT, SITTIGN UP IN HER RECLINER. CALL LIGHT WTIHIN REACH. FALL PRECAUTIONS IN PLACE.
[2023-12-28] VITALS (11 sets, daily range): BP systolic 94–133; BP diastolic 43–78; PULSE 70–82; TEMP 97.7–100.5
[2023-12-28 06:36] LABS: BASO # 0.1 K/mm3 (0.0-0.2); BASO % 0.7 % (0.0-2.0); EOS # 0.2 K/mm3 (0.0-0.7); EOS % 2.1 % (0.0-4.0); GRAN # 6.4 K/mm3 (1.4-6.5); GRAN % 76.5 % (42.2-75.2); LYMPH # 1.2 K/mm3 (1.2-3.4); MEAN CELL VOLUME 101 fl (80.0-100.0); MEAN CORPUSCULAR HGB CONC 32 g/dl (33.0-37.0); MEAN PLATELET VOLUME 9.5 fl (7.4-10.4); MONO # 0.6 K/mm3 (0.1-0.6); MONO % 6.5 % (1.7-9.3); PLATELET COUNT 137 K/mm3 (130-400); RED BLOOD COUNT 3.59 M/mm3 (4.10-5.30)
[2023-12-28 06:38] LABS: HEMATOCRIT 36.1 % (37.0-47.0); HEMOGLOBIN 11.5 g/dl (12.5-16.0); MEAN CORPUSCULAR HEMOGLOBIN 32 pg (27-31)
[2023-12-28 06:54] LABS: CALCIUM 8.5 mg/dL (8.4-10.2); CREATININE, serum 1.04 mg/dL (0.57-1.11); POTASSIUM 5.5 mEq/L (3.5-4.5)
--- NOTE | 2023-12-28 08:20 | NUR ---
PT LAYING IN BED UPON ENTERING. ASSESSMENT DONE, MEDS GIVEN PER ORDER. PT REPORTS 8/10 LEFT KNEE PAIN, PRN TRAMADOL GIVEN. ECCHYMOSIS AND EDEMA NOTED OT LEFT KNEE, PHILLIP WRAPS IN PLACE. PRN TYLENOL GIVEN FOR 100.5 TEMP. ERYTHEMA NOTED TO PTS HANDS, PT REPORTS SHE BURNED HER HANDS RECENTLY, NO BLISTER NOTED AND SKIN INTACT. PTS SKIN IS WARM. PT ON 2L NASAL CANNULA. PT DENIES NEEDS. BED IN LOWEST POSITION, CALL LIGHT IN REACH, BED ALARM ON.
[2023-12-28] MEDS ORDERED: Sodium Zirconium Cyclosilicate for Oral Susp 10 GM PACKET PO ONE (10:15)
--- NOTE | 2023-12-28 11:16 | NUR ---
PT REPORTS CONTINUED 8/10 LEFT KNEE PAIN, PRN MORPHINE GIVEN. CT AT BEDSIDE, TICKET TO RIDE GIVEN AND PT DOWN TO CT VIA WHEELCHAIR.
[2023-12-28] MEDS ORDERED: Iohexol 300 - 100 ML VIAL IV ONE (11:20)
[2023-12-28] MEDS ORDERED: Vancomycin 1.25 GM,Special Dose/Pharmacy Prepared 1.25 GM in NS 250 ML IV SCH (14:00)
--- NOTE | 2023-12-28 14:18 | NUR ---
Wildlife Refuge Specialist faxed clinical updates to Claudine at [facility].
--- NOTE | 2023-12-28 15:38 | NUR ---
SW called [facility] to check status of referal. Notified that they do not have beds available at this time. SW met with patient to discuss second choice from [email or web address] list. Patient called to discuss. They asked for referral to [facility]. Referral faxed for review. Discharge plan: SNF
[2023-12-29] VITALS (12 sets, daily range): BP systolic 137–176; BP diastolic 69–104; PULSE 73–85; TEMP 97.6–100
[2023-12-29 06:54] LABS: BASO # 0.1 K/mm3 (0.0-0.2); EOS # 0.2 K/mm3 (0.0-0.7); EOS % 2.6 % (0.0-4.0); GRAN # 6.1 K/mm3 (1.4-6.5); GRAN % 73.3 % (42.2-75.2); HEMOGLOBIN 11.3 g/dl (12.5-16.0); LYMPH # 1.3 K/mm3 (1.2-3.4); LYMPH % 15.6 % (20.0-51.0); MEAN CELL VOLUME 102 fl (80.0-100.0); MEAN CORPUSCULAR HEMOGLOBIN 32 pg (27-31); MEAN CORPUSCULAR HGB CONC 31 g/dl (33.0-37.0); MEAN PLATELET VOLUME 9.7 fl (7.4-10.4); MONO # 0.6 K/mm3 (0.1-0.6); MONO % 7.3 % (1.7-9.3); PLATELET COUNT 138 K/mm3 (130-400); RED BLOOD COUNT 3.54 M/mm3 (4.10-5.30)
[2023-12-29 07:12] LABS: CALCIUM 8.4 mg/dL (8.4-10.2); CREATININE, serum 0.9 mg/dL (0.57-1.11); POTASSIUM 5.2 mEq/L (3.5-4.5)
--- NOTE | 2023-12-29 07:35 | NUR ---
Bedside report received from FARIHA Chung. Pt resting in bed with no complaints. Call [facility] within reach and fall precautions in place.
--- NOTE | 2023-12-29 08:55 | NUR ---
SW received call from patient's asking for referral to [facility]. stated his concern of small room/bathroom at [facility] and would prefer another facility. Referral sent via secure email Discharge plan: SNF
[2023-12-29] MEDS ORDERED: Sodium Zirconium Cyclosilicate for Oral Susp 10 GM PACKET PO SCH (11:00)
--- NOTE | 2023-12-29 12:33 | NUR ---
TAYLOR spoke with Micah at [facility] who questioned medication Aimovig autoinjection due to cost. TAYLOR met with patient who states she thinks it's for her migraines and she takes it once monthly and she has medication at home that she can provide . TAYLOR spoke with KYAW De Oliveira who confirmed this information. TAYLOR left message for Micah to provide update.
--- NOTE | 2023-12-29 15:49 | NUR ---
KYAW De Oliveira notified that pt has been incontinent of urine today and that a UA order needs collected. KYAW De Oliveira gave TORB order for INT straight x1 for UA collection. Straight cath performed by this nurse using sterile technique. 200 mL of dark yellow urine collected. Pericare provided to pt following straight cath and urine sample sent to lab. Pt tolerated well with no complaints.
[2023-12-29 15:58] LABS: COLLECTION METHOD CLEAN CATCH
[2023-12-29 16:10] LABS: PH 5.5 (5.0-8.5); URINE APPEARANCE CLEAR (CLEAR/HAZY); URINE BLOOD NEGATIVE (NEGATIVE); URINE COLOR YELLOW (YELLOW); URINE GLUCOSE 3+ (NEGATIVE); URINE KETONE NEGATIVE (NEGATIVE); URINE NITRATE NEGATIVE (NEGATIVE); URINE PROTEIN(semi-quant) 1+ (NEGATIVE); URINE UROBILINOGEN 0.2 E.U/dL (0.2-1.0)
--- NOTE | 2023-12-29 20:00 | NUR ---
UPON SHIFT ASSESSMENT, PATIENT WAS AWAKE IN BED WITH FAMILY VISITTING BEDSIDE. SHE IS AXO X3 BUT SLOW TO PROCESS. RT LEG COVERED WITH PHILLIP AND LEFT LOWER EXTREMITY BRUISING NOTED FROM KNEE DOWN. PEDAL PULSE AUDIBLE WITH DOPPLER. CAP REFILL GOOD. PATIENT STATES PAIN IS INCREASING RISONG TO 8/10. WILL ADMINISTER PRN TRAMADOL. CALL LIGHT WITHIN REACH, BED ALARM ON.
[2023-12-30] VITALS (7 sets, daily range): BP systolic 139–152; BP diastolic 60–69; PULSE 71–79; TEMP 97.5–98.5
--- NOTE | 2023-12-30 | NUR ---
ROUNDED ON PATIENT-RATES PAIN 5/10- IMPROVED FROM 8/10.
--- NOTE | 2023-12-30 04:57 | NUR ---
CALL PLACED TO HOSPITALISTSURENDRA. PLACED PATIENT ON BEDSIDE COMMODE TO ENCOURAGE URINATION. PATIENT ONLY ABLE TO VOID 100 ML. BLADDER SCAN PERFORMED-1095 ML PRESENT. TORB TO PLACE CALI GIVEN. 18 Fr CALI INSERTED AND WITHIN 5 MINUTES 1000ML SARAH CLOUDY URINE VOIDED IN CALI BAG. WILL ADVISE DAYSHIFT THAT PATIENT CANNOT FEEL A FULL BLADDER, STATES, "I DIDN'T FEEL LIKE I HAD TO PEE."
--- NOTE | 2023-12-30 07:41 | NUR ---
Bedside report received from RN Aletha. Pt resting in bed awake with no complaints. Call light within reach.
--- NOTE | 2023-12-30 09:37 | NUR ---
Pt awake in bed watching TV. Shift assessment completed. VSS. Pt is A&O x4. Neuro check completed. PHILLPI bandage on LLE removed per pt request due to "itchiness". This nurse will rewrap LLE extremity before pt works with PT Mani. LLE hematoma on knee with purple/yellow bruising, pt states is painful to touch. [address] at 2L NC with no irriation to bilateral nares. Fall precautions in place. Pt has no request at this time, call light within reach.
[2023-12-30] MEDS ORDERED: INVANZ INJ1 G/VIAL IV (12:23)
--- NOTE | 2023-12-30 15:03 | NUR ---
Discharge paperwork provided with [employer] transportation supervisor. INT to Lt wrist discontinued with tip intact. Pt is leaving facility with 22g IV in Rt forearm per orders and 18 Fr campbell catheter. Telephone report given to FARIHA Johnson at [facility]. Personal items sent with pt and pt has no questions upon discharge.
--- NOTE | 2023-12-30 15:40 | NUR ---
Cane Pusher contacted Claudine at [facility] who advised they do not have a bed available for patient today. TAYLOR contacted Micah at [facility] and faxed clinical updates. Micah advised they can accept today. TAYLOR met with patient to present and review IM. Patient verbalized understanding and provided signature. TAYLOR placed form in chart then provided copy to patient. TAYLOR contacted [facility]ah and faxed discharge orders. Transport time was set for 1430. TAYLOR contacted patient's , Alex to update him. Discharge Plan; [facility] SNF
[2023-12-30] MEDS ORDERED: Insulin Glargine-ygfn (Lantus) SQ SCH (21:00)
== END 2023-12-30 15:04 | DRG 689 ==
LOC: COL.ER 20:41 → SURG 12-26 04:06 → COL.ER 12-26 04:06 → SURG 12-26 05:47 → MEDICAL 12-27 09:12 → SURG 12-27 09:12 → MEDICAL 12-27 11:53
PROVIDERS: Emergency Medicine; Internal Medicine Infectious Disease; Nurse Practitioner Family; Physician Assistant; ADMIT Internal Medicine
DX: N39.0 Urinary tract infection, site not specified (principal); J96.01 Acute respiratory failure with hypoxia; N17.9 Acute kidney failure, unspecified; G40.89 Other seizures; I50.30 Unspecified diastolic (congestive) heart failure; R11.2 Nausea with vomiting, unspecified; S80.12XA Contusion of left lower leg, initial encounter; I11.0 Hypertensive heart disease with heart failure; I49.5 Sick sinus syndrome; Z95.0 Presence of cardiac pacemaker; E78.5 Hyperlipidemia, unspecified; G47.33 Obstructive sleep apnea (adult) (pediatric); E11.40 Type 2 diabetes mellitus with diabetic neuropathy, unspecified; Z79.4 Long term (current) use of insulin; G25.81 Restless legs syndrome; M75.102 Unspecified rotator cuff tear or rupture of left shoulder, not specified as traumatic; K21.9 Gastro-esophageal reflux disease without esophagitis
CPT/HCPCS: A9270; J0744; J1335; J1815; J2270; J2405; J2470; J3370; J7040; J7050; Q3014; Q9967

== ENCOUNTER 2024-01-26 08:50 | Emergency (ER) | payer MEDICARE ==
[~2024-01-26] VITALS: Ht 154.9 cm; Wt 90.0 kg
[~2024-01-26 08:50] MED LIST changes: +AIMOVIG AU70 MG/1 ML SQ; +ALDACTONE 25MG25 M1 PO; +BELSOMRA10 MG PO; +CIPRO 500MG TA500 MG PO; +ENTRESTO 24 MG1 EACH PO; +INVANZ INJ1 G/VIAL IV; +MIRAPEX0.75 MG PO; +ZOLOFT 50MG50 MG PO
[2024-01-26 08:52] VITALS: TEMP 98.5
[2024-01-26] MEDS ORDERED: Pantoprazole 40 MG in NS 10 ML IV ONE (10:00)
[2024-01-26 10:01] LABS: BASO # 0.1 K/mm3 (0.0-0.2); BASO % 0.7 % (0.0-2.0); EOS # 0.3 K/mm3 (0.0-0.7); EOS % 2.6 % (0.0-4.0); GRAN # 7.5 K/mm3 (1.4-6.5); GRAN % 73.1 % (42.2-75.2); LYMPH # 1.8 K/mm3 (1.2-3.4); LYMPH % 17.5 % (20.0-51.0); MEAN CELL VOLUME 101 fl (80.0-100.0); MEAN CORPUSCULAR HEMOGLOBIN 33 pg (27-31); MEAN CORPUSCULAR HGB CONC 33 g/dl (33.0-37.0); MONO # 0.6 K/mm3 (0.1-0.6); MONO % 5.9 % (1.7-9.3); PLATELET COUNT 197 K/mm3 (130-400); RED BLOOD COUNT 4.25 M/mm3 (4.10-5.30); REDCELL DISTRIBUTION WIDTH-CV 12.1 % (11.5-14.5)
[2024-01-26 10:04] LABS: PROTHROMBIN TIME 11.2 SECONDS (9.7-12.8)
[2024-01-26 10:07] LABS: PARTIAL THROMBOPLASTIN TIME 24.5 SECONDS (26.0-37.0)
[2024-01-26 10:18] LABS: ALANINE AMINOTRANSFERASE 18 U/L (0-55); ALBUMIN 3.6 g/dL (3.4-4.8); ALKALINE PHOSPHATASE 128 U/L (40-150); ANION GAP 12 mmol/L (7-16); AST,SGOT 19 U/L (5-34); BILIRUBIN,TOTAL 0.4 mg/dL (0.2-1.2); BLOOD UREA NITROGEN 32 mg/dL (10-20); CALCIUM 9.4 mg/dL (8.4-10.2); CHLORIDE 105 mEq/L (98-107); GLUCOSE 262 mg/dL (70-99); MAGNESIUM 2.6 mg/dL (1.6-2.6); POTASSIUM 5.3 mEq/L (3.5-4.5); SODIUM 140 mEq/L (136-145); TOTAL PROTEIN 7.2 g/dl (6.2-8.1)
[2024-01-26 10:25] LABS: TROPONIN-I < 0.010 ng/mL (0.00-0.033)
[2024-01-26 13:50] VITALS: BP 141/69; PULSE 77
== END 2024-01-26 13:50 | disposition home or self-care (01) ==
LOC: COL.ER 08:50
PROVIDERS: Family Medicine
DX: R07.89 Other chest pain (principal); Z87.891 Personal history of nicotine dependence
CPT/HCPCS: J2470

== ENCOUNTER 2024-02-11 19:41 | Emergency (ER) | payer MEDICARE ==
[2024-02-11 19:45] VITALS: TEMP 98.6
[2024-02-11] MEDS ORDERED: Ondansetron 4 MG/2 ML VIAL IV ONE (20:15)
[2024-02-11 20:22] LABS: BASO # 0.1 K/mm3 (0.0-0.2); BASO % 0.8 % (0.0-2.0); EOS # 0.2 K/mm3 (0.0-0.7); EOS % 1.6 % (0.0-4.0); GRAN # 7.1 K/mm3 (1.4-6.5); GRAN % 69.9 % (42.2-75.2); HEMATOCRIT 44.9 % (37.0-47.0); HEMOGLOBIN 14.8 g/dl (12.5-16.0); LYMPH # 2.2 K/mm3 (1.2-3.4); LYMPH % 21.5 % (20.0-51.0); MEAN CELL VOLUME 99 fl (80.0-100.0); MEAN CORPUSCULAR HEMOGLOBIN 33 pg (27-31); MEAN CORPUSCULAR HGB CONC 33 g/dl (33.0-37.0); MEAN PLATELET VOLUME 9.7 fl (7.4-10.4); MONO # 0.6 K/mm3 (0.1-0.6); PLATELET COUNT 188 K/mm3 (130-400); RED BLOOD COUNT 4.53 M/mm3 (4.10-5.30)
[2024-02-11 20:40] LABS: ALBUMIN 3.9 g/dL (3.4-4.8); BILIRUBIN,TOTAL 0.3 mg/dL (0.2-1.2); CALCIUM 9.7 mg/dL (8.4-10.2); CREATININE, serum 1.33 mg/dL (0.57-1.11); MAGNESIUM 2.6 mg/dL (1.6-2.6); POTASSIUM 4.6 mEq/L (3.5-4.5); TOTAL PROTEIN 7.8 g/dl (6.2-8.1)
[2024-02-11 21:00] LABS: PROLACTIN 5.4 ng/mL (5.18-26.53)
[2024-02-11 23:35] VITALS: BP 112/64; PULSE 71
== END 2024-02-11 23:35 | disposition home or self-care (01) ==
LOC: COL.ER 19:41
PROVIDERS: Nurse Practitioner Primary Care
DX: E11.40 Type 2 diabetes mellitus with diabetic neuropathy, unspecified (principal); Z79.899 Other long term (current) drug therapy
CPT/HCPCS: J2405

== ENCOUNTER 2024-02-19 19:04 | Emergency (ER) | payer MEDICARE ==
[~2024-02-19] VITALS: Ht 154.9 cm; Wt 89.5 kg
[2024-02-19 19:09] VITALS: TEMP 98.2
[2024-02-19] MEDS ORDERED: Morphine 4 MG/ML VIAL IV ONE (19:30)
[2024-02-19 19:45] LABS: BASO # 0.1 K/mm3 (0.0-0.2); BASO % 0.7 % (0.0-2.0); EOS # 0.2 K/mm3 (0.0-0.7); EOS % 2.2 % (0.0-4.0); GRAN # 6.2 K/mm3 (1.4-6.5); GRAN % 71.2 % (42.2-75.2); HEMATOCRIT 46.1 % (37.0-47.0); HEMOGLOBIN 14.8 g/dl (12.5-16.0); LYMPH # 1.6 K/mm3 (1.2-3.4); LYMPH % 18.3 % (20.0-51.0); MEAN CELL VOLUME 101 fl (80.0-100.0); MEAN CORPUSCULAR HEMOGLOBIN 32 pg (27-31); MEAN CORPUSCULAR HGB CONC 32 g/dl (33.0-37.0); MEAN PLATELET VOLUME 9.5 fl (7.4-10.4); MONO # 0.6 K/mm3 (0.1-0.6); MONO % 7.3 % (1.7-9.3); PLATELET COUNT 193 K/mm3 (130-400); RED BLOOD COUNT 4.58 M/mm3 (4.10-5.30); REDCELL DISTRIBUTION WIDTH-CV 12.3 % (11.5-14.5)
[2024-02-19 20:18] LABS: ALBUMIN 3.7 g/dL (3.4-4.8); BILIRUBIN,TOTAL 0.4 mg/dL (0.2-1.2); CALCIUM 9.5 mg/dL (8.4-10.2); CREATININE, serum 1.28 mg/dL (0.57-1.11); POTASSIUM 4.3 mEq/L (3.5-4.5); TOTAL PROTEIN 7.7 g/dl (6.2-8.1)
[2024-02-19] MEDS ORDERED: ULTRAM 50MG TAB50 MG PO (21:57)
[2024-02-19 22:00] VITALS: BP 93/45; PULSE 70
== END 2024-02-19 22:00 | disposition home or self-care (01) ==
LOC: COL.ER 19:04
PROVIDERS: Emergency Medicine
DX: M25.562 Pain in left knee (principal); W19.XXXA Unspecified fall, initial encounter
CPT/HCPCS: J2270

== ENCOUNTER 2024-03-14 22:38 | Emergency (ER) | payer MEDICARE ==
[~2024-03-14] VITALS: Ht 154.9 cm; Wt 88.2 kg
[2024-03-14 23:03] VITALS: TEMP 98.4
[2024-03-15] MEDS ORDERED: Home oxyCODONE/Acetaminophen 5/325 MG #4 TAB/PACK PO ONE (02:15)
[2024-03-15 02:20] VITALS: BP 115/58; PULSE 73
== END 2024-03-15 02:40 | disposition home or self-care (01) ==
LOC: COL.ER 22:38
DX: S70.02XA Contusion of left hip, initial encounter (principal); W01.0XXA Fall on same level from slipping, tripping and stumbling without subsequent striking against object, initial encounter

== ENCOUNTER 2024-04-08 20:03 | Inpatient (IN) | payer MEDICARE ==
[~2024-04-08] VITALS: Ht 154.9 cm; Wt 79.4 kg
[~2024-04-08 20:03] MED LIST changes: -MIRAPEX1.5 MG PO
[2024-04-08 21:00] LABS: PROTHROMBIN TIME 10.8 SECONDS (9.7-12.8)
[2024-04-08 21:11] LABS: ALBUMIN 4.1 g/dL (3.4-4.8); BILIRUBIN,TOTAL 0.3 mg/dL (0.2-1.2); CALCIUM 9.7 mg/dL (8.4-10.2); CREATININE, serum 2.26 mg/dL (0.57-1.11); POTASSIUM 5.3 mEq/L (3.5-4.5); TOTAL PROTEIN 8.5 g/dl (6.2-8.1)
[2024-04-08 21:17] LABS: TROPONIN-I 0.019 ng/mL (0.00-0.033)
[2024-04-08 22:33] LABS: BASO # 0.1 K/mm3 (0.0-0.2); BASO % 0.7 % (0.0-2.0); EOS # 0.1 K/mm3 (0.0-0.7); EOS % 1.5 % (0.0-4.0); GRAN # 6.5 K/mm3 (1.4-6.5); GRAN % 73.7 % (42.2-75.2); HEMOGLOBIN 13.9 g/dl (12.5-16.0); LYMPH # 1.6 K/mm3 (1.2-3.4); LYMPH % 18.3 % (20.0-51.0); MEAN CELL VOLUME 97 fl (80.0-100.0); MEAN CORPUSCULAR HEMOGLOBIN 31 pg (27-31); MEAN CORPUSCULAR HGB CONC 32 g/dl (33.0-37.0); MEAN PLATELET VOLUME 9.5 fl (7.4-10.4); MONO # 0.5 K/mm3 (0.1-0.6); MONO % 5.6 % (1.7-9.3); PLATELET COUNT 224 K/mm3 (130-400); RED BLOOD COUNT 4.52 M/mm3 (4.10-5.30); REDCELL DISTRIBUTION WIDTH-CV 12.8 % (11.5-14.5)
[2024-04-08] MEDS ORDERED: NS 1,000 ML IV ONE (22:45)
[2024-04-08 22:51] LABS: COLLECTION METHOD CLEAN CATCH
[2024-04-08 23:06] LABS: PH 6.5 (5.0-8.5); URINE APPEARANCE CLEAR (CLEAR/HAZY); URINE BLOOD NEGATIVE (NEGATIVE); URINE COLOR YELLOW (YELLOW); URINE GLUCOSE 2+ (NEGATIVE); URINE KETONE NEGATIVE (NEGATIVE); URINE NITRATE NEGATIVE (NEGATIVE); URINE PROTEIN(semi-quant) NEGATIVE (NEGATIVE); URINE UROBILINOGEN 0.2 E.U/dL (0.2-1.0)
[2024-04-09] VITALS (8 sets, daily range): BP systolic 99–111; BP diastolic 56–65; PULSE 69–76; TEMP 97.5–98.3
[2024-04-09] MEDS ORDERED: Acetaminophen 500 MG TAB PO PRN (00:30)
[2024-04-09] MEDS ORDERED: Ondansetron 4 MG/2 ML VIAL IV PRN (00:30)
[2024-04-09] MEDS ORDERED: LR 1,000 ML IV SCH (00:30)
--- NOTE | 2024-04-09 01:15 | NUR ---
PATIENT ADMITED INTO ROOM 323 FROM ER WITH JOSE AND FALLS AT HOME. A&O. VSS. PATIENT IS WEAK, 1 ASSIST WITH WALKER. PT/OT CONSULTED. IV FLUIDS INFUSING VIA PUMP INTO RIGHT AC IV. PATIENT C/O MILD ACHES, REPORTS CHRONIC BACK ISSUES. GAVE PRN TYLENOL. PATIENT HAS MULTIPLE ALLERGIES, SEE MAR. HEAD TO TOE ASSESSMENT COMPLETE. HIGH FALL RISK. ORIENTED TO ROOM. CALL LIGHT IN REACH. BED ALARM ON.
[2024-04-09] MEDS ORDERED: Glucagon 1 MG VIAL IM PRN (01:30)
[2024-04-09] MEDS ORDERED: Dextrose (Glucose) 15 GM (4 x 3.75 GM) Chewable TABLET PACK PO PRN (01:30)
[2024-04-09] MEDS ORDERED: Dextrose 50% Water 25 GM/50 ML SYRINGE IV PRN (01:30)
[2024-04-09 06:19] LABS: BASO # 0.1 K/mm3 (0.0-0.2); BASO % 0.7 % (0.0-2.0); EOS # 0.2 K/mm3 (0.0-0.7); EOS % 2.3 % (0.0-4.0); GRAN # 5.1 K/mm3 (1.4-6.5); GRAN % 61.9 % (42.2-75.2); HEMATOCRIT 39.2 % (37.0-47.0); HEMOGLOBIN 12.4 g/dl (12.5-16.0); LYMPH # 2.2 K/mm3 (1.2-3.4); LYMPH % 26.3 % (20.0-51.0); MEAN CELL VOLUME 98 fl (80.0-100.0); MEAN CORPUSCULAR HEMOGLOBIN 31 pg (27-31); MEAN CORPUSCULAR HGB CONC 32 g/dl (33.0-37.0); MEAN PLATELET VOLUME 9.4 fl (7.4-10.4); MONO # 0.7 K/mm3 (0.1-0.6); MONO % 8.6 % (1.7-9.3); PLATELET COUNT 216 K/mm3 (130-400); RED BLOOD COUNT 4.02 M/mm3 (4.10-5.30); REDCELL DISTRIBUTION WIDTH-CV 12.7 % (11.5-14.5)
[2024-04-09 06:38] LABS: CALCIUM 8.7 mg/dL (8.4-10.2); CREATININE, serum 1.97 mg/dL (0.57-1.11); POTASSIUM 4.7 mEq/L (3.5-4.5)
[2024-04-09] MEDS ORDERED: Insulin Lispro (HumaLOG) SQ SCH (08:00)
[2024-04-09] MEDS ORDERED: Heparin 5,000 UNITS/ML 1 ML VIAL SQ SCH (08:00)
[2024-04-09] MEDS ORDERED: Carvedilol 3.125 MG TAB PO SCH (08:00)
--- NOTE | 2024-04-09 08:00 | NUR ---
Patient sleeping in bed, easily awakened with verbal command. A&Ox4. VSS. IV CDI, fluids infusing. Visible tremors in hands and feet. BLE edema. Call light within reach. Bed alarm on
--- NOTE | 2024-04-09 08:55 | NUR ---
farmworker fur met with pt to discuss discharge planning. She reports to live with her , Alex [phone] in [place]. She sees KATERINE Mendoza for PCP needs and obtains medications from [facility] with no difficulties. Pt verified to have Medicare A/B and AARP insurance. She reports to need some assist with ADLS when "my legs don't work." She uses a FWW and wheelchair for DME. Pt confirmed the DPOA on file listing her . SW discussed PT/OT meeting with her today and making reccomendations. SW provided [email or web address] list of SNF's and discussed [facility], [facility], and Home Health. Pt reports interest in [facility], then [facility] (been before,) [facility] and [facility]. SW advised main social work team will continue to follow for therapy notes and update her. SW called Coordinator Ayde with [facility] to give referral and information for review. PT/OT pending Discharge Plan: [facility]
[2024-04-09] MEDS ORDERED: Spironolactone 25 MG TAB PO SCH (09:00)
[2024-04-09] MEDS ORDERED: Gabapentin 300 MG CAP PO SCH (09:00)
[2024-04-09] MEDS ORDERED: LIPITOR 40MG TA40 MG PO (10:40)
[2024-04-09] MEDS ORDERED: BACTRIM 400 MG-1 TAB PO (10:43)
--- NOTE | 2024-04-09 11:30 | NUR ---
composite worker spoke with PT Sienna who reports pt would need SNF as [facility] might be too intense for her to tolerate. SW faxed [facility] referral. TAYLOR emailed referral to [facility]. Discharge Plan: SNF
--- NOTE | 2024-04-09 19:20 | NUR ---
Received report from FARIHA Dinh. Pt is alert and resting in bed, bed in low position, bed alarms on and call light within reach. IVF's are running at this time. Pt does not look in distress at this time. Will continue with pt care.
[2024-04-09] MEDS ORDERED: Empagliflozin 10 MG TAB PO SCH (21:00)
[2024-04-09] MEDS ORDERED: tiZANidine 4 MG TAB PO PRN (21:00)
[2024-04-09] MEDS ORDERED: Atorvastatin 40 MG TAB PO SCH ×2 (21:00)
[2024-04-09] MEDS ORDERED: Sertraline 50 MG TAB PO SCH (21:00)
[2024-04-10] VITALS (13 sets, daily range): BP systolic 97–135; BP diastolic 55–82; PULSE 69–83; TEMP 97.5–98.5
--- NOTE | 2024-04-10 06:20 | NUR ---
Pt had an uneventful night. Pt had complained of some pain and pain meds were given per EMAR. Pt slept most of the night and vitals were stable. IVF's are running at this time. Will give report to day shift nurse.
[2024-04-10 06:54] LABS: CALCIUM 8.9 mg/dL (8.4-10.2); CREATININE, serum 1.51 mg/dL (0.57-1.11)
[2024-04-10 07:40] LABS: MAGNESIUM 2.7 mg/dL (1.6-2.6)
--- NOTE | 2024-04-10 10:41 | NUR ---
PT LAYING IN BED. HEAD TO TOE ASSESSMENT COMPLETED. MORNING MEDS GIVEN. PATIENT REPORTS R SIDE BACK PAIN. PAIN MED GIVEN. BLE EDEMA NOTED. BED IN LOWEST POSTION, BED ALARM ON, NOSKID SOCKS ON, CALL LIGHT IN REACH.
--- NOTE | 2024-04-10 12:26 | NUR ---
TAYLOR Peraza received a call from [facility] that they are able to accept patient. TAYLOR was notified [facility] unable to accept patient. TAYLOR attended interdisciplinary clinical rounding with Dr. Miles. Patient and are agreeable to rehab. SW discussed options that were sent yesterday. Patient and expressed patient had previously been to [facility] and would like to return there as they had a pleasant experience. TAYLOR was notified [facility] is also able to accept. TAYLOR explained patient chose another facility. TAYLOR secure emailed clinical updates to [facility]. Discharge plan: [facility] - SNF
--- NOTE | 2024-04-10 18:25 | NUR ---
PATIENT C/O ITCHING, NO RASH OBSERVED. CALLED HOSPITALIST, SEE ORDERS FOR IV BENDADRYL, GIVEN.
[2024-04-10] MEDS ORDERED: diphenhydrAMINE 50 MG/ML 1 ML VIAL IV ONE (18:30)
--- NOTE | 2024-04-10 19:00 | NUR ---
Bedside report received from RN Elizabeth. Pt awake in recliner with spouse at bedside. Pt has no request at this time. Call light within reach and fall precautions in place.
--- NOTE | 2024-04-10 20:57 | NUR ---
Pt awake in recliner requesting to use bathroom. Assisted pt x1 assist to bathroom with walker and to bed without complications. Pt is A&O x4. Assessment completed. VSS. Pt denies pain rating 0/10. Pt states itching from earlier has resolved. INT to Lt forearm patent with no swelling, redness, or drainage. +2 edema noted to BLE. Pt has no request at this time. Call light within reach and fall precautions in place.
[2024-04-11] VITALS (12 sets, daily range): BP systolic 97–144; BP diastolic 48–81; PULSE 71–82; TEMP 97.6–98.5
[2024-04-11] MEDS ORDERED: ERTAPENEM 0.5 GM IV SCH (02:00)
[2024-04-11] MEDS ORDERED: SODIUM CHLORIDE IV SCH (02:00)
--- NOTE | 2024-04-11 11:58 | NUR ---
Airline Counter Agent sent updates via secure email to Micah at [facility].
[2024-04-11 12:28] LABS: BASO # 0.1 K/mm3 (0.0-0.2); BASO % 0.7 % (0.0-2.0); EOS # 0.2 K/mm3 (0.0-0.7); EOS % 1.8 % (0.0-4.0); GRAN # 8.9 K/mm3 (1.4-6.5); GRAN % 80.1 % (42.2-75.2); HEMATOCRIT 41.5 % (37.0-47.0); HEMOGLOBIN 13.1 g/dl (12.5-16.0); LYMPH # 1.2 K/mm3 (1.2-3.4); LYMPH % 10.9 % (20.0-51.0); MEAN CELL VOLUME 98 fl (80.0-100.0); MEAN CORPUSCULAR HEMOGLOBIN 31 pg (27-31); MEAN CORPUSCULAR HGB CONC 32 g/dl (33.0-37.0); MEAN PLATELET VOLUME 9.4 fl (7.4-10.4); MONO # 0.7 K/mm3 (0.1-0.6); MONO % 6.1 % (1.7-9.3); PLATELET COUNT 229 K/mm3 (130-400); RED BLOOD COUNT 4.23 M/mm3 (4.10-5.30); REDCELL DISTRIBUTION WIDTH-CV 12.5 % (11.5-14.5)
[2024-04-11 12:41] LABS: CALCIUM 9.3 mg/dL (8.4-10.2); CREATININE, serum 1.19 mg/dL (0.57-1.11); POTASSIUM 5.6 mEq/L (3.5-4.5)
--- NOTE | 2024-04-11 12:43 | NUR ---
D: Plastics Worker stopped by room on rounds. A: Pt was resting and content. Pt asked for prayer and fitness director prayed with her. Pt appreciated the visit. P: Plastics Worker informed pt that if she needed anything from the fitness director area to let her nurse know. Plastics Worker will follow up as needed.
[2024-04-11] MEDS ORDERED: Sodium Zirconium Cyclosilicate for Oral Susp 10 GM PACKET PO ONE (14:00)
--- NOTE | 2024-04-11 20:38 | NUR ---
Patient resting in bed. States she has a headache but denies need for pain meds at this time. Snack provided. Assessment complete. IV in left forearm flushes easily without complications. Call light and personal items in reach. Bed in low position and bed alarm on.
[2024-04-12] VITALS (11 sets, daily range): BP systolic 114–144; BP diastolic 57–76; PULSE 69–79; TEMP 97.7–98.4
[2024-04-12 07:09] LABS: BASO # 0.1 K/mm3 (0.0-0.2); BASO % 0.9 % (0.0-2.0); EOS # 0.3 K/mm3 (0.0-0.7); EOS % 3.9 % (0.0-4.0); GRAN # 4.6 K/mm3 (1.4-6.5); HEMOGLOBIN 13.7 g/dl (12.5-16.0); LYMPH # 1.9 K/mm3 (1.2-3.4); LYMPH % 25.9 % (20.0-51.0); MEAN CELL VOLUME 97 fl (80.0-100.0); MEAN CORPUSCULAR HEMOGLOBIN 32 pg (27-31); MEAN CORPUSCULAR HGB CONC 33 g/dl (33.0-37.0); MEAN PLATELET VOLUME 9.7 fl (7.4-10.4); MONO # 0.6 K/mm3 (0.1-0.6); PLATELET COUNT 224 K/mm3 (130-400); RED BLOOD COUNT 4.34 M/mm3 (4.10-5.30); REDCELL DISTRIBUTION WIDTH-CV 12.4 % (11.5-14.5)
[2024-04-12 07:24] LABS: CALCIUM 9.2 mg/dL (8.4-10.2); CREATININE, serum 1.09 mg/dL (0.57-1.11); POTASSIUM 5.6 mEq/L (3.5-4.5)
[2024-04-12] MEDS ORDERED: Sodium Zirconium Cyclosilicate for Oral Susp 10 GM PACKET PO ONE (08:00)
--- NOTE | 2024-04-12 08:00 | NUR ---
PATIENT SITTING UP IN CHAIR AT BEDSIDE. AAOX4. HEAD TO TOE ASSESSMENT COMPLETED. MORNING MEDS GIVEN. REPORTED MILD PAIN, HEADACHE. REFUSED PAIN MED AT THIS TIME, PT WANTED TO WAIT TO EAT BREAKFAST FIRST TO SEE IF THAT WOULD HELP. PT HAS SCATTERED BRUISING. PRIMARILY BUE, BLE ALSO. NO SKID SOCKS ON, CALL LIGHT IN REACH.
[2024-04-12] MEDS ORDERED: Torsemide 20 MG TAB PO SCH (12:00)
[2024-04-12 16:10] LABS: CREATININE, serum 1.22 mg/dL (0.57-1.11); POTASSIUM 5.5 mEq/L (3.5-4.5)
--- NOTE | 2024-04-12 16:12 | NUR ---
can intake worker attended interdisciplinary clinical rounding with Dr. Mauro. Patient has a high potassium and is not ready for medical discharge. SW secure emailed clinical updates to [facility]. SW attended multidisciplinary team meeting. If patient's labs have improved tomorrow she will be able to go to [facility] for SNF. SW met with patient and provided the above update. SW reviewed the important message from Medicare with patient. Patient understood. SW made copy, placed original in chart and provided copy to patient. No questions or concerns. Discharge plan: [facility] - [facility]F
[2024-04-12] MEDS ORDERED: NS 500 ML IV ONE (17:15)
[2024-04-12] MEDS ORDERED: Sodium Polystyrene Sulf Susp 15 GM/60 ML BOTTLE PO ONE (17:30)
--- NOTE | 2024-04-12 19:18 | NUR ---
Bedside report received from RN Elizabeth. Pt awake in recliner with no complaints. Call light within reach and fall precautions in place.
--- NOTE | 2024-04-12 23:18 | NUR ---
Pt resting in bed watching TV with no complaints. Shift assessment completed. VSS. Pt denies pain rating 0/10. INT to Lt forearm patent with no swelling, redness or drainage. Pt ambulates to bathroom and back to bed x1 with walker with no complications. Pt has no request at this time. Call light within reach and fall precautions in place.
[2024-04-13] VITALS (8 sets, daily range): BP systolic 93–117; BP diastolic 46–68; PULSE 76–88; TEMP 97.8–98.8
[2024-04-13 06:40] LABS: CALCIUM 8.9 mg/dL (8.4-10.2); CREATININE, serum 1.19 mg/dL (0.57-1.11); POTASSIUM 4.9 mEq/L (3.5-4.5)
[2024-04-13] MEDS ORDERED: Sodium Polystyrene Sulf Susp 15 GM/60 ML BOTTLE PO ONE (08:15)
--- NOTE | 2024-04-13 09:00 | NUR ---
Patient in bed, awake, alert and oriented. Denies pain, shortness of breath or nausea. States she is ready to leave today if she is able to. Bed in lowest position with call light within reach.
[2024-04-13] MEDS ORDERED: ULTRAM 50MG TAB50 MG PO (11:43)
--- NOTE | 2024-04-13 12:25 | NUR ---
timber mill worker attended interdisciplinary clinical rounding with Dr. Mauro. Patient is medically ready for discharge to [facility]. TAYLOR secure emailed clinical updates to Micah at [facility] and scheduled transportation at 2 pm. TAYLOR notified patient's nurse, Dr. Mauro, patient, patient's and social media community manager. TAYLOR secure emailed discharge orders to Micah at [facility]. Discharge plan: [facility] - SNF
--- NOTE | 2024-04-13 13:31 | NUR ---
Report called to [facility], all questions answered, callback number provided. IV removed prior to discharge, all belongings sent with patient.
--- NOTE | 2024-04-13 14:06 | NUR ---
Pt discharged to [facility] - picked up by [facility] staff. All belongings and paperwork sent with patient and [facility] staff.
== END 2024-04-13 14:09 | DRG 683 ==
LOC: COL.ER 20:03 → EDBEDREQ 04-09 00:01 → SURG 04-09 00:06
PROVIDERS: Family Medicine; Internal Medicine; Physician Assistant; ADMIT Internal Medicine
DX: N17.9 Acute kidney failure, unspecified (principal); I50.32 Chronic diastolic (congestive) heart failure; Z16.39 Resistance to other specified antimicrobial drug; N39.0 Urinary tract infection, site not specified; E87.5 Hyperkalemia; I10 Essential (primary) hypertension; E78.5 Hyperlipidemia, unspecified; G47.33 Obstructive sleep apnea (adult) (pediatric); E11.9 Type 2 diabetes mellitus without complications; G25.81 Restless legs syndrome; I25.10 Atherosclerotic heart disease of native coronary artery without angina pectoris; F44.5 Conversion disorder with seizures or convulsions; E11.40 Type 2 diabetes mellitus with diabetic neuropathy, unspecified; K21.9 Gastro-esophageal reflux disease without esophagitis; I49.5 Sick sinus syndrome; I65.29 Occlusion and stenosis of unspecified carotid artery; Z87.440 Personal history of urinary (tract) infections; Z86.73 Personal history of transient ischemic attack (TIA), and cerebral infarction without residual deficits; Z88.8 Allergy status to other drugs, medicaments and biological substances; Z88.1 Allergy status to other antibiotic agents; Z88.0 Allergy status to penicillin; Z95.0 Presence of cardiac pacemaker; Z87.891 Personal history of nicotine dependence; Z79.4 Long term (current) use of insulin; Z88.5 Allergy status to narcotic agent; G89.29 Other chronic pain; N20.0 Calculus of kidney
CPT/HCPCS: A9270; J1200; J1335; J1644; J1650; J1815; J7030; J7040; J7120